=== PATIENT | female | born 1980 | race African-American/Black ===

== ENCOUNTER 2018-07-05 18:44 | Outpatient (CLI) | payer MEDICAID ==
[~2018-07-05] VITALS: Ht 149.9 cm; Wt 78.0 kg
[~2018-07-05 18:44] MED LIST: AC500T PO; ACET-2267 PO; ACHD5005 PO; AMOX500T2 PO; CEPH500C PO; CLON1TAB3 PO; CPR500T PO; DOXY100C2 PO; Depo Provera IM; ESCI20TA2 PO; FERR325T18 PO; HYDR-2997 PO; HYDR-34 PO; HYDR1TAB PO; HYDR1TAB86 PO; IBP600T1; LRT10T PO; META800T5 PO; METR500T PO; NAPR-243 PO; NAPR250T6 PO; NITR100C PO; ONDAN4ODT PO; OXYC10TA63 PO; OXYC15TA73 PO; PRD20T PO; PROP1TAB77 PO; QTP100T PO; SULF1TAB34; SULF1TAB38 PO; TRAM50TA2 PO; TRM50T; [UNRECOGNIZED DRUG - CODE]
--- NOTE | 2018-07-05 18:54 | NUR ---
VISHNU LEBRON presented to unit via W/C from ED, accompanied by S/O, with c/o FALL,STOMACH PAIN. VISHNU LEBRON weighed, gowned, voided, and to bed. EFHM and TOCO applied, VS taken. VISHNU LEBRON oriented to bed controls, call light, TV, heat, and A/C controls.
[2018-07-05 20:00] VITALS: BP 117/70
[2018-07-05] MEDS ORDERED: PREN-53 PO (22:38)
[2018-07-05 23:11] VITALS: BP 114/66
--- NOTE | 2018-07-05 23:20 | NUR ---
Pt ambulatory off unit at this time, accompanied by s/o. No ss distress noted
--- NOTE | 2018-07-10 00:49 | Physician Query-Final Dx ---
DEBBY NOWAK 07/10/18 0048: Clinic Account Progress/Dx Physician Query: Please give diagnosis Date of Service Jul 05, 2018 at 18:44 MELINDA GUAJARDO MD 07/10/18 0728: Clinic Account Progress/Dx DIAGNOSIS: Diagnosis False labor DEBBY NOWAK Jul 10, 2018 00:48 MELINDA GUAJARDO MD Jul 10, 2018 07:28
== END 2018-07-05 23:20 | disposition home or self-care (01) ==
LOC: WSo 18:44 → LDRP 18:46 → WSo 23:20
PROVIDERS: ATTEND Obstetrics & Gynecology
DX: O47.9 False labor, unspecified (principal)
CPT/HCPCS: 99213

== ENCOUNTER → 2018-08-13 | Outpatient (CLI) | payer MEDICAID ==
[~2018-08-13] MED LIST changes: +PREN-53 PO
== END ==
LOC: LABNPT 11:00
PROVIDERS: ATTEND Obstetrics & Gynecology
DX: O28.8 Other abnormal findings on antenatal screening of mother (principal)
CPT/HCPCS: 82570; 84156

== ENCOUNTER → 2018-08-16 | Outpatient (CLI) | payer MEDICAID ==
[2018-08-16 11:36] LABS: URINE CREATININE FOR RATIO 54 MG/DL (30-125); URINE PROTEIN FOR RATIO ONLY < 6 MG/DL (6-12)
== END ==
LOC: LABNPT 10:00
PROVIDERS: ATTEND Obstetrics & Gynecology
DX: O14.03 Mild to moderate pre-eclampsia, third trimester (principal)
CPT/HCPCS: 82570; 84156

== ENCOUNTER → 2018-08-27 | Outpatient (CLI) | payer MEDICAID | LOC: LABNPT 10:00 | PROVIDERS: ATTEND Obstetrics & Gynecology | DX: O14.03 Mild to moderate pre-eclampsia, third trimester (principal) | CPT/HCPCS: 82570; 84156 ==

== ENCOUNTER 2018-08-30 14:53 | Inpatient (IN) | payer MEDICAID ==
[2018-08-30] VITALS (16 sets, daily range): BP systolic 117–172; BP diastolic 82–134
[~2018-08-30] VITALS: Ht 149.9 cm; Wt 79.9 kg
[~2018-08-30 14:53] MED LIST changes: -DOCU100C37 PO; -LABE200T7 PO; -OXYC1TAB12 PO
--- NOTE | 2018-08-30 15:00 | NUR ---
VISHNU LEBRON presented to unit via ambulation, accompanied by fmaily members, with Pre-E and direct admit by Dr. Pt. weighed, gowned, voided, and to bed. EFHM and TOCO applied, VS taken. Pt. oriented to bed controls, call light, TV, heat, and A/C controls.
[2018-08-30] MEDS ORDERED: FAMOTIDINE 20MG/2ML IV (PEPCID) IV ONE (15:15)
[2018-08-30] MEDS ORDERED: METOCLOPRAMIDE INJ 10 MG/2 ML (REGLAN) IV ONE (15:15)
[2018-08-30] MEDS ORDERED: CITRIC ACID/SOB CIT (BICITRA) 30 ML UDC PO ONE (15:15)
[2018-08-30] MEDS: LACTATED RINGERS 1,000 ML IV PRN ×2 (15:27→16:10)
--- NOTE | 2018-08-30 15:27 | NUR ---
#20G IV x1 attempt to Rt.AC by TOMASA Mead. site patent. admission labs collected from site prior to IVF's infusing. LR bolus infusing with OR tubing per gravity. IV attempt x1 by this RN, unsuccessful.
--- NOTE | 2018-08-30 15:34 | NUR ---
consent for repeat c/s signed, placed on chart.
[2018-08-30 15:37] LABS: BASOPHILS # (AUTO) 0.1 10^3/uL (0.0-0.1); BASOPHILS % (AUTO) 1 % (0-10); EOSINOPHILS # (AUTO) 0.1 10^3/uL (0.0-0.3); EOSINOPHILS % (AUTO) 1 % (0-10); HEMATOCRIT 31 % (35-52); HEMOGLOBIN 9.9 G/DL (11.5-16.0); LYMPHOCYTES # (AUTO) 2.9 X 10^3 (1.0-4.0); LYMPHOCYTES % (AUTO) 31 % (12-44); MEAN CORPUSCULAR HEMOGLOBIN 27 PG (25-34); MEAN CORPUSCULAR HGB CONC 33 G/DL (32-36); MEAN CORPUSCULAR VOLUME 83 FL (80-99); MEAN PLATELET VOLUME 9.3 FL (7.4-10.4); MONOCYTES # (AUTO) 0.4 X 10^3 (0.0-1.0); MONOCYTES % (AUTO) 5 % (0-12); NEUTROPHILS # (AUTO) 5.9 X 10^3 (1.8-7.8); NEUTROPHILS % (AUTO) 64 % (42-75); PLATELET COUNT 227 10^3/uL (130-400); WHITE BLOOD COUNT 9.3 10^3/uL (4.3-11.0)
[2018-08-30] MEDS ORDERED: ONDANSETRON 4 MG/2 ML (SDV) Z0FRAN ONE (15:43)
[2018-08-30] MEDS ORDERED: BUPIVACAINE SPINAL 0.75% (SENSORCAINE) 2 ML AMP ONE (15:43)
[2018-08-30] MEDS ORDERED: OXYTOCIN/NORMAL SALINE 1,000 ML IV ONE (15:43)
[2018-08-30] MEDS ORDERED: fentaNYL INJECTION 100 MCG/2 ML AMP ONE (15:44)
--- NOTE | 2018-08-30 15:45 | NUR ---
pre-op medications given. see eMar for further.
--- NOTE | 2018-08-30 15:49 | NUR ---
consent signed for repeat c/s and placed on chart.
--- NOTE | 2018-08-30 15:58 | NUR ---
admitting assessment completed. pt reports c/o's BRIDGES x "several weeks" without visual changes. DTR's WNL. trace pitting pedal edema noted. denies epigastric pain. admission paperwork completed. pt states "'s sister (Beatriz Herrera, lives in ) will be guardian" of infant. pt will contact accredited legal secretary after delivery of infant.
--- NOTE | 2018-08-30 16:38 | NUR ---
here to see pt.
[2018-08-30] MEDS ORDERED: metroNIDAZOLE 500MG/100ML IVPB 100 ML ONE (16:41)
--- NOTE | 2018-08-30 16:42 | NUR ---
monitors dc'd. pt ambulated to OB c/s room with OR staff @ side. pt stable with no sx's of distress noted.
[2018-08-30] MEDS ORDERED: ceFAZolin 2 GM IV Premixed 50 ML IV ONE (16:45)
[2018-08-30] MEDS ORDERED: metroNIDAZOLE 500MG/100ML IVPB 100 ML IV ONE (16:45)
[2018-08-30] MEDS ORDERED: LIDOCAINE PF 2% 5 ML (XYLOCAINE) VIAL ONE (17:04)
[2018-08-30] MEDS ORDERED: MAGNESIUM SULFATE DRIP 500 ML IV ONE (17:40)
[2018-08-30] MEDS ORDERED: MEASLES,MUMPS,RUBELLA 1 EA INJ SC ONE (17:45)
[2018-08-30] MEDS ORDERED: TETANUS,DIPTH,PERTUSS P/F (BOOSTRIX) 0.5 ML VIAL IM ONE (17:45)
[2018-08-30] MEDS ORDERED: MEPERIDINE (DEMEROL) INJ 100 MG/ML IM PRN (17:45)
[2018-08-30] MEDS ORDERED: PROMETHAZINE INJ 25 MG/ML (PHENERGAN) AMP IM PRN (17:45)
[2018-08-30] MEDS ORDERED: D5 LR IV SOLUTION 1,000 ML IV ONE (17:52)
--- NOTE | 2018-08-30 17:53 | History & Physical ---
History and Physical Date Seen by Provider: Aug 30, 2018 Time Seen by Provider: 16:30 This patient is a 38-year-old 5 black female with an EDC of 4 [phone] putting her at 35 weeks gestation on this date seen in my clinic in follow- up from [facility] evaluation concerning for developing preeclampsia. Repeat lab work showed an elevated ALT an AST, an elevated LDH platelet count that was slightly decreasing and a urine protein creatinine ratio 0.47 and pressure was in the 140s over 100. She is sent to labor and delivery for management including repeat delivery secondary to severe preeclampsia with developing help syndrome patient denied ruptured membranes or bleeding. A GBS culture had been obtained on this date and that was results of course is not available. Patient's was complicated by gestational diabetes for which she was on metformin taken 500 mg 3 times a day with acceptable blood sugar control on that regimen. Allergies are to ibuprofen which causes a rash Medications are metformin 500 mg 3 times a day and vitamins Past medical history, past surgical history, obstetric history, family history, and social histories are per the antepartum record HEENT exam is normal Neck is supple with no lymphadenopathy and no thyromegaly Abdomen gravid soft nontender nondistended Extremities show clubbing or cyanosis. There is no Homans sign. There is some pretibial pitting edema and patient had DTRs are 3+ to 4 over 4 globally Pelvic exam shows a cervix closed 50 percent effaced -2 station with a vertex presentation Assessment and plan 35 week gestation with severe preeclampsia/help syndrome in a patient with 5 previous C-sections and a history of gestational diabetes. She was admitted and then fairly shortly taken to the operating room for repeat delivery. Plan would be for maintenance on IV magnesium post operatively until its apparent that preeclampsia is resolving 36 weeks gestation with severe preeclampsia 5 previous Allergies and Home Medications Allergies Coded Allergies: ibuprofen (Unverified Allergy, Mild, 02/19/09) Home Medications Ferrous Sulfate 325 Mg Tablet, 325 MG PO TIDWM Prescribed by: SARAH WADE on 11/17/15 1525 Inz325/Iron Fumarate/FA/Dss 1 Each Tablet, 1 EACH PO DAILY, (Reported) Patient Home Medication List Home Medication List Reviewed: Yes MELINDA GUAJARDO MD Aug 30, 2018 17:53
[2018-08-30] MEDS ORDERED: PROMETHAZINE INJ 25 MG/ML (PHENERGAN) AMP IVP ONE (18:00)
[2018-08-30] MEDS ORDERED: HYDROmorphone 2 MG/ML VIAL (DILAUDID) IV ONE (18:00)
[2018-08-30] MEDS ORDERED: diphenhydrAMINE 50 MG/ML INJ (BENADRYL) IV PRN (18:00)
[2018-08-30] MEDS ORDERED: NALOXONE 0.4 MG/ML 1 ML (NARCAN) VIAL IV PRN ×2 (18:00)
[2018-08-30] MEDS ORDERED: MEPERIDINE (DEMEROL) INJ 50 MG/ML IVP ONE (18:00)
[2018-08-30] MEDS ORDERED: ONDANSETRON 4 MG/2 ML (SDV) Z0FRAN IV PRN (18:00)
[2018-08-30] MEDS ORDERED: morphine INJ 10 MG/ML 1ML (SYR OR VIAL) IVP ONE (18:00)
[2018-08-30] MEDS ORDERED: ONDANSETRON 4 MG/2 ML (SDV) Z0FRAN IVP PRN (18:00)
[2018-08-30] MEDS ORDERED: METOCLOPRAMIDE INJ 10 MG/2 ML (REGLAN) IV PRN (18:00)
[2018-08-30] MEDS: MAGNESIUM SULFATE DRIP 500 ML IV SCH (18:17)
[2018-08-30] MEDS: OXYTOCIN/NORMAL SALINE 500 ML IV SCH (18:24)
--- NOTE | 2018-08-30 18:24 | NUR ---
pitocin rate decreased to 100cc/hr. magnesium infusion @ 2gm/hr (50cc/hr).
[2018-08-30] MEDS ORDERED: LABETALOL HCL 20 MG/4 ML VIAL IV ONE ×2 (18:45→20:20)
--- NOTE | 2018-08-30 19:01 | NUR ---
pt transferred to room 313 via bed with this RN and CANDELARIO Singer @ side. familiarized with room surroundings. call light within reach.
--- NOTE | 2018-08-30 19:20 | NUR ---
report given to CANDELARIO Wharton.
[2018-08-30] MEDS: DOCUSATE SODIUM 100 MG (COLACE) CAP PO SCH (20:59)
[2018-08-30] MEDS: oxyCODONE/APAP 10/325MG (PERCOCET 10) TABLET PO PRN (21:00)
--- NOTE | 2018-08-30 22:48 | NUR ---
Dr Arango called for report. Orders received and po medications given as ordered.
[2018-08-30] MEDS: LABETALOL 200 MG (NORMODYNE) TAB PO SCH (23:00)
[2018-08-30] MEDS ORDERED: LABETALOL 200 MG (NORMODYNE) TAB PO ONE (23:02)
[2018-08-31] VITALS (12 sets, daily range): BP systolic 121–160; BP diastolic 76–107
[2018-08-31] MEDS: oxyCODONE/APAP 10/325MG (PERCOCET 10) TABLET PO PRN ×5 (03:19→23:05)
--- NOTE | 2018-08-31 03:26 | OPERATIVE REPORT ---
DATE OF SERVICE: 08/30/2018 PREOPERATIVE DIAGNOSIS: A 35 weeks gestation with severe preeclampsia and 5 previous sections. POSTOPERATIVE DIAGNOSIS: A 35 weeks gestation with severe preeclampsia and 5 previous sections. OPERATIVE PROCEDURE: Repeat low transverse delivery of a viable male with Apgars of 3, 6, and 8 at 1, 5 and 10 minutes respectively. Weight is 5 lbs. 5 oz. Cord blood gas of 7.26 and a time of 17:07. OPERATIVE DESCRIPTION: With the patient in the supine position under satisfactory spinal analgesia, she was prepped and draped in the usual fashion for abdominal surgery. Bingham catheter was placed in the urinary bladder. Repeat Pfannenstiel incision made through skin with a scalpel by removing the patient's previous Pfannenstiel incisional scar. The abdomen was entered in the usual manner. Bladder retractor placed in position, clean scalpel used to make a 4 cm hysterotomy incision transversely across the lower uterine segment that was exceedingly thin and fibrotic secondary to her previous deliveries. Copious clear fluid was released on hysterotomy. A vigorous viable male was delivered via the uterine incision. Infant had stats as noted above. The infant was bulb suctioned on delivery of the head and again on completion of delivery. The umbilical cord was doubly clamped and cut and baby was passed to Dr. Griffith, the regional clinical research associate in attendance for delivery. Cord bloods were obtained. The placenta delivered manually and was normal with a 3-vessel cord. The uterus was exteriorized and interior wiped clean with a wet laparotomy sponge. Uterine incision closed with a running locked suture of 2-0 Vicryl. Hemostasis was satisfactory. The uterus was returned to the abdominal cavity. All blood clot and debris was removed from the abdominal cavity. Prior to replacing the uterus to the abdomen, the bladder dome was imbricated on itself secondary to some bleeding and some superficial vessels at that point. Hemostasis was complete. The uterus was emptied of all blood clot and debris and the anterior retroperitoneum was closed with a running suture of 2-0 Vicryl. Rectus muscles were closed with that suture as well. The rectus fascia was closed with 2-0 Vicryl, subcutaneous tissue with 2-0 Vicryl and the skin was stapled. Sponge, needle counts were correct on completion of the procedure. Estimated blood loss for procedure was around 200 mL. The patient tolerated the procedure well and was transferred to recovery room in stable condition and started on magnesium in the recovery room for her severe preeclampsia. The baby was taken to the full term nursery under the care of Dr. Griffith. Job ID: [id number] DocumentID: [id number] Dictated Date: 08/30/2018 18:08:17 Dairy Processing Supervisor Date: 08/31/2018 03:25:48 Dictated By: MELINDA GUAJARDO MD MTDD
[2018-08-31] MEDS: MAGNESIUM SULFATE DRIP 500 ML IV SCH (04:07)
[2018-08-31 06:38] LABS: BASOPHILS % (AUTO) 0 % (0-10); EOSINOPHILS # (AUTO) 0.1 10^3/uL (0.0-0.3); EOSINOPHILS % (AUTO) 1 % (0-10); HEMATOCRIT 33 % (35-52); HEMOGLOBIN 10.3 G/DL (11.5-16.0); LYMPHOCYTES # (AUTO) 2.5 X 10^3 (1.0-4.0); LYMPHOCYTES % (AUTO) 28 % (12-44); MEAN CORPUSCULAR HEMOGLOBIN 26 PG (25-34); MEAN CORPUSCULAR HGB CONC 31 G/DL (32-36); MEAN CORPUSCULAR VOLUME 84 FL (80-99); MEAN PLATELET VOLUME 9.2 FL (7.4-10.4); MONOCYTES # (AUTO) 0.5 X 10^3 (0.0-1.0); MONOCYTES % (AUTO) 5 % (0-12); NEUTROPHILS # (AUTO) 5.9 X 10^3 (1.8-7.8); NEUTROPHILS % (AUTO) 66 % (42-75); PLATELET COUNT 206 10^3/uL (130-400); RED CELL DISTRIBUTION WIDTH 14.9 % (10.0-14.5)
[2018-08-31] MEDS: OXYTOCIN/NORMAL SALINE 500 ML IV SCH (06:39)
--- NOTE | 2018-08-31 07:10 | NUR ---
Dr Arango to see patient and new orders received
[2018-08-31 07:13] LABS: ALANINE AMINOTRANSFERASE 134 U/L (0-55); ALBUMIN 2.8 GM/DL (3.2-4.5); ALKALINE PHOSPHATASE 126 U/L (40-136); BILIRUBIN,TOTAL 0.2 MG/DL (0.1-1.0); BUN/CREATININE RATIO 3; CALCIUM 7.8 MG/DL (8.5-10.1); CARBON DIOXIDE 18 MMOL/L (21-32); CHLORIDE 108 MMOL/L (98-107); CREATININE SERUM 0.86 MG/DL (0.60-1.30); GFR ESTIMATED > 60; GLUCOSE 111 MG/DL (70-105); POTASSIUM 3.1 MMOL/L (3.6-5.0); SODIUM 137 MMOL/L (135-145); TOTAL PROTEIN 5.7 GM/DL (6.4-8.2)
--- NOTE | 2018-08-31 07:28 | Progress Note-Standard ---
Standard Progress Note Progress Notes/Assess & Plan Date Seen by a Provider: Aug 31, 2018 Time Seen by a Provider: 07:25 Progress/Assessment & Plan This patient is without complaint. She has good pain control. Patient denies nausea vomiting. She is tolerating oral intake well. Vital Signs Date Time Temp Pulse Resp B/P (MAP) Pulse Ox O2 Delivery O2 Flow Rate FiO2 08/31/18 06:00 65 18 08/31/18 05:00 66 18 08/31/18 04:00 97.3 63 18 121/76 (91) 100 Room Air 08/31/18 04:00 64 18 08/31/18 03:00 64 18 08/31/18 02:04 100 Room Air 08/31/18 02:03 62 18 08/31/18 01:00 56 18 08/31/18 00:00 97.1 64 18 133/87 (102) 100 Room Air 08/31/18 00:00 64 18 08/30/18 23:00 69 18 08/30/18 22:00 65 18 08/30/18 20:10 63 18 08/30/18 20:10 96.5 18 169/107 (127) 100 Room Air 08/30/18 19:20 65 18 08/30/18 18:50 117/86 (96) 08/30/18 18:43 97.0 16 172/102 (125) 98 Room Air 08/30/18 18:33 96.4 62 16 155/100 (118) 100 Room Air 08/30/18 18:18 96.9 70 16 151/134 (140) 98 Room Air 08/30/18 18:18 70 16 08/30/18 18:01 97.1 85 16 142/96 (111) 98 Room Air 08/30/18 17:48 97.2 77 16 119/89 (99) 100 Room Air 08/30/18 16:35 90 18 159/103 (121) Room Air 08/30/18 16:20 86 18 153/100 (117) Room Air 08/30/18 16:05 91 18 132/82 (99) Room Air 08/30/18 15:50 93 18 146/92 (110) Room Air 08/30/18 15:11 98.1 98 18 151/96 (114) Room Air I & O 08/31/18 07:00 Intake Total 6050 ml Output Total 7700 ml Balance -1650 ml Blood pressures have been somewhat labile but have responded to IV and by mouth labetalol and are acceptable at this point Laboratory Tests Test 08/30/18 15:27 08/30/18 16:06 08/31/18 06:10 Range/Units White Blood Count 9.3 9.0 4.3-11.0 10^3/uL Red Blood Count 3.66 L 3.92 L 4.35-5.85 10^6/uL Hemoglobin 9.9 L 10.3 L 11.5-16.0 G/DL Hematocrit 31 L 33 L 35-52 % Mean Corpuscular Volume 83 84 80-99 FL Mean Corpuscular Hemoglobin 27 26 25-34 PG Mean Corpuscular Hemoglobin Concent 33 31 L 32-36 G/DL Red Cell Distribution Width 15.0 H 14.9 H 10.0-14.5 % Platelet Count 227 206 130-400 10^3/uL Mean Platelet Volume 9.3 9.2 7.4-10.4 FL Neutrophils (%) (Auto) 64 66 42-75 % Lymphocytes (%) (Auto) 31 28 12-44 % Monocytes (%) (Auto) 5 5 0-12 % Eosinophils (%) (Auto) 1 1 0-10 % Basophils (%) (Auto) 1 0 0-10 % Neutrophils # (Auto) 5.9 5.9 1.8-7.8 X 10^3 Lymphocytes # (Auto) 2.9 2.5 1.0-4.0 X 10^3 Monocytes # (Auto) 0.4 0.5 0.0-1.0 X 10^3 Eosinophils # (Auto) 0.1 0.1 0.0-0.3 10^3/uL Basophils # (Auto) 0.1 0.0 0.0-0.1 10^3/uL Glucometer 241 H 70-110 MG/DL Sodium Level 137 135-145 MMOL/L Potassium Level 3.1 L 3.6-5.0 MMOL/L Chloride Level 108 H 98-107 MMOL/L Carbon Dioxide Level 18 L 21-32 MMOL/L Anion Gap 11 5-14 MMOL/L Blood Urea Nitrogen 3 L 7-18 MG/DL Creatinine 0.86 0.60-1.30 MG/DL Estimat Glomerular Filtration Rate > 60 BUN/Creatinine Ratio 3 Glucose Level 111 H 70-105 MG/DL Calcium Level 7.8 L 8.5-10.1 MG/DL Corrected Calcium 8.8 8.5-10.1 MG/DL Total Bilirubin 0.2 0.1-1.0 MG/DL Aspartate Amino Transf (AST/SGOT) 91 H 5-34 U/L Alanine Aminotransferase (ALT/SGPT) 134 H 0-55 U/L Alkaline Phosphatase 126 40-136 U/L Lactate Dehydrogenase 356 H 125-220 U/L Total Protein 5.7 L 6.4-8.2 GM/DL Albumin 2.8 L 3.2-4.5 GM/DL Liver enzymes remain slightly elevated. The LDH this is elevated as well. These are in the same range as the preadmission labs yesterday. Physical exam shows a benign abdomen. Extremities show no clubbing or cyanosis. There is no Homans sign. Assessment and plan postoperative day number 1 status post repeat delivery at 36 weeks' gestation due to severe preeclampsia in a patient who is diabetic and has had prior C-sections 5. It appears preeclampsia is resolving this point we will call her magnesium and her IV fluids and remove the Bingham catheter and allowing ambulation. Continue the labetalol 100 mg twice a day in the short-term and a close attention to her blood pressures and other vitals MELINDA GUAJARDO MD Aug 31, 2018 07:28
--- NOTE | 2018-08-31 07:45 | NUR ---
rn to pt bedside. pt resting eyes closed. plan of care reviewed with pt and verbalized understanding. iv fluids to saline lock and lau catheter dc'd. peircare, pad changed and underwear on. noted small amt of rubra.
--- NOTE | 2018-08-31 07:51 | Anesthesia-Regional Post-Op ---
Regional Patient Condition Mental Status: Alert, Oriented x3 Circulation: Same as Pre-Op Headache: Absent Sensation: Full Recovery Motor Block: Absent Post Op Complications Complications None Follow Up Care/Instructions Patient Instructions None needed. Anesthesia/Patient Condition Patient is doing well, no complaints, stable vital signs, no apparent adverse anesthesia problems. No complications reported per nursing. ANA VIDAL CRNA Aug 31, 2018 07:51
--- NOTE | 2018-08-31 08:30 | NUR ---
pt requests to go to bathroom. assisted out of bed and ambulates slowly to bathroom. void, pericare (assisted by rn). Ambulates from bathroom to room door and then back to bed. scd's resumed. fresh ice water to bedside table. pt c/o continued right upper abd pain. warm blanket placed to area.
[2018-08-31] MEDS: LABETALOL 200 MG (NORMODYNE) TAB PO SCH ×2 (09:11→21:03)
[2018-08-31] MEDS: DOCUSATE SODIUM 100 MG (COLACE) CAP PO SCH ×2 (09:12→21:03)
--- NOTE | 2018-08-31 09:20 | NUR ---
pt reports right upper abd pain is better after heat and rates pain 8:10. denies further needs at this time.
--- NOTE | 2018-08-31 09:34 | NUR ---
Assisted up to void, pericare.
--- NOTE | 2018-08-31 09:38 | NUR ---
ambulates 50 feet and then back to room. another warm blanket placed on right upper abd for comfort
--- NOTE | 2018-08-31 11:00 | NUR ---
Assisted up to void by Lucille Daley rn. void, pericare and back to bed. pt c/o nausea.
--- NOTE | 2018-08-31 11:12 | NUR ---
Rn to bedside. pt resting in bed eyes closed. vital signs obtained. plan of care reviewed with pt. pt dozing off when visiting with rn. pt reports she did not get much sleep last night.
--- NOTE | 2018-08-31 11:18 | NUR ---
Dr fernandez called and notified of pt c/o and new order received.
[2018-08-31] MEDS ORDERED: ONDANSETRON 4 MG/2 ML (SDV) Z0FRAN IVP ONE (11:30)
--- NOTE | 2018-08-31 13:35 | NUR ---
DR. GUAJARDO TO PT'S BEDSIDE.
[2018-08-31] MEDS: METOCLOPRAMIDE 10 MG (REGLAN) TAB PO SCH (14:12)
--- NOTE | 2018-08-31 17:10 | NUR ---
PT IN BED, LYING DOWN. PAIN MEDS GIVEN PO PER PT REQUEST; SEE EMAR FOR FURTHER. PT DENIES ANY FURTHER NEEDS AT THIS TIME. CALL LIGHT WITHIN REACH.
--- NOTE | 2018-08-31 21:20 | NUR ---
PT RESTING IN BED. ASSESSMENT COMPLETED. PT DENIES ANY NEEDS AT THIS TIME. WILL CONTINUE TO MONITOR.
--- NOTE | 2018-09-01 00:30 | NUR ---
PT REQUESTING COLD TRY. SANDWICH TRAY PROVIDED.
[2018-09-01 02:30] VITALS: BP 133/81
[2018-09-01] MEDS: oxyCODONE/APAP 10/325MG (PERCOCET 10) TABLET PO PRN ×4 (04:59→23:43)
[2018-09-01 05:51] VITALS: BP 130/80
[2018-09-01 08:20] VITALS: BP 136/82
--- NOTE | 2018-09-01 08:20 | NUR ---
A.M. ASSESSMENT COMPLETED. VSS.
--- NOTE | 2018-09-01 08:45 | NUR ---
DR. GUAJARDO HERE TO SEE PT. PT UNSURE IF WANTS TO GO TODAY OR NOT.
--- NOTE | 2018-09-01 08:56 | Progress Note-Standard ---
Standard Progress Note Progress Notes/Assess & Plan Date Seen by a Provider: Sep 01, 2018 Time Seen by a Provider: 08:54 Progress/Assessment & Plan This patient is without complaint. She has good pain control. Patient denies nausea vomiting. She is tolerating oral intake well. Vital Signs Date Time Temp Pulse Resp B/P (MAP) Pulse Ox O2 Delivery O2 Flow Rate FiO2 08/31/18 06:00 65 18 08/31/18 05:00 66 18 08/31/18 04:00 97.3 63 18 121/76 (91) 100 Room Air 08/31/18 04:00 64 18 08/31/18 03:00 64 18 08/31/18 02:04 100 Room Air 08/31/18 02:03 62 18 08/31/18 01:00 56 18 08/31/18 00:00 97.1 64 18 133/87 (102) 100 Room Air 08/31/18 00:00 64 18 08/30/18 23:00 69 18 08/30/18 22:00 65 18 08/30/18 20:10 63 18 08/30/18 20:10 96.5 18 169/107 (127) 100 Room Air 08/30/18 19:20 65 18 08/30/18 18:50 117/86 (96) 08/30/18 18:43 97.0 16 172/102 (125) 98 Room Air 08/30/18 18:33 96.4 62 16 155/100 (118) 100 Room Air 08/30/18 18:18 96.9 70 16 151/134 (140) 98 Room Air 08/30/18 18:18 70 16 08/30/18 18:01 97.1 85 16 142/96 (111) 98 Room Air 08/30/18 17:48 97.2 77 16 119/89 (99) 100 Room Air 08/30/18 16:35 90 18 159/103 (121) Room Air 08/30/18 16:20 86 18 153/100 (117) Room Air 08/30/18 16:05 91 18 132/82 (99) Room Air 08/30/18 15:50 93 18 146/92 (110) Room Air 08/30/18 15:11 98.1 98 18 151/96 (114) Room Air I & O 08/31/18 07:00 Intake Total 6050 ml Output Total 7700 ml Balance -1650 ml Blood pressures have been somewhat labile but have responded to IV and by mouth labetalol and are acceptable at this point Laboratory Tests Test 08/30/18 15:27 08/30/18 16:06 08/31/18 06:10 Range/Units White Blood Count 9.3 9.0 4.3-11.0 10^3/uL Red Blood Count 3.66 L 3.92 L 4.35-5.85 10^6/uL Hemoglobin 9.9 L 10.3 L 11.5-16.0 G/DL Hematocrit 31 L 33 L 35-52 % Mean Corpuscular Volume 83 84 80-99 FL Mean Corpuscular Hemoglobin 27 26 25-34 PG Mean Corpuscular Hemoglobin Concent 33 31 L 32-36 G/DL Red Cell Distribution Width 15.0 H 14.9 H 10.0-14.5 % Platelet Count 227 206 130-400 10^3/uL Mean Platelet Volume 9.3 9.2 7.4-10.4 FL Neutrophils (%) (Auto) 64 66 42-75 % Lymphocytes (%) (Auto) 31 28 12-44 % Monocytes (%) (Auto) 5 5 0-12 % Eosinophils (%) (Auto) 1 1 0-10 % Basophils (%) (Auto) 1 0 0-10 % Neutrophils # (Auto) 5.9 5.9 1.8-7.8 X 10^3 Lymphocytes # (Auto) 2.9 2.5 1.0-4.0 X 10^3 Monocytes # (Auto) 0.4 0.5 0.0-1.0 X 10^3 Eosinophils # (Auto) 0.1 0.1 0.0-0.3 10^3/uL Basophils # (Auto) 0.1 0.0 0.0-0.1 10^3/uL Glucometer 241 H 70-110 MG/DL Sodium Level 137 135-145 MMOL/L Potassium Level 3.1 L 3.6-5.0 MMOL/L Chloride Level 108 H 98-107 MMOL/L Carbon Dioxide Level 18 L 21-32 MMOL/L Anion Gap 11 5-14 MMOL/L Blood Urea Nitrogen 3 L 7-18 MG/DL Creatinine 0.86 0.60-1.30 MG/DL Estimat Glomerular Filtration Rate > 60 BUN/Creatinine Ratio 3 Glucose Level 111 H 70-105 MG/DL Calcium Level 7.8 L 8.5-10.1 MG/DL Corrected Calcium 8.8 8.5-10.1 MG/DL Total Bilirubin 0.2 0.1-1.0 MG/DL Aspartate Amino Transf (AST/SGOT) 91 H 5-34 U/L Alanine Aminotransferase (ALT/SGPT) 134 H 0-55 U/L Alkaline Phosphatase 126 40-136 U/L Lactate Dehydrogenase 356 H 125-220 U/L Total Protein 5.7 L 6.4-8.2 GM/DL Albumin 2.8 L 3.2-4.5 GM/DL Liver enzymes remain slightly elevated. The LDH this is elevated as well. These are in the same range as the preadmission labs yesterday. Physical exam shows a benign abdomen. Extremities show no clubbing or cyanosis. There is no Homans sign. Assessment and plan postoperative day number 1 status post repeat delivery at 36 weeks' gestation due to severe preeclampsia in a patient who is diabetic and has had prior C-sections 5. It appears preeclampsia is resolving this point we will call her magnesium and her IV fluids and remove the Bingham catheter and allowing ambulation. Continue the labetalol 100 mg twice a day in the short-term and a close attention to her blood pressures and other vitals September 01, 2018 Patient is without complaint. She is ablating, voiding, tolerating oral intake well has good control of her pain, patient denies chest pain, denies shortness of breath, denies headache, denies nausea vomiting. Vital Signs Date Time Temp Pulse Resp B/P (MAP) Pulse Ox O2 Delivery O2 Flow Rate FiO2 09/01/18 05:51 98.6 80 18 130/80 (97) 100 Room Air 09/01/18 02:30 98.3 80 18 133/81 (98) 100 Room Air 08/31/18 21:30 98.6 77 19 160/95 (116) 100 Room Air 08/31/18 15:37 96.8 65 19 158/107 (124) 100 Room Air 08/31/18 11:14 96.9 58 19 129/88 (102) 100 Room Air 08/31/18 09:12 97.0 I & O 09/01/18 07:00 Intake Total 5815 ml Output Total 7000 ml Balance -1185 ml Blood pressures are generally stable and are decreasing to a more normal range with the labetalol The abdomen is benign. Surgical incision is clean dry and intact. Extremities show no clubbing or cyanosis. There is no Homans sign. Assessment and plan postoperative day number 2 status post repeat delivery due to severe preeclampsia. Patient doing well and we will entertain discharge home today or tomorrow as she prefers Final Diagnosis Repeat delivery at 36 weeks gestation MELINDA GUAJARDO MD Sep 01, 2018 08:56
[2018-09-01] MEDS ORDERED: DOCU100C37 PO ×2 (08:58)
[2018-09-01] MEDS ORDERED: OXYC1TAB12 PO ×2 (08:58)
[2018-09-01] MEDS ORDERED: LABE200T7 PO ×2 (08:58)
--- NOTE | 2018-09-01 09:00 | Discharge Instructions ---
Discharge Instructions Discharge Medications New, Converted or Re-Newed RX: RX on Chart Patient Instructions Patient Instructions: As directed Return to The Hospital For: As directed Activity & Diet Discharge Diet: No Restrictions Activity as Tolerated: No Orders-Post D/C & Referrals Follow Up Appt: RTC on Friday, September 07, 2018 at 930 a.m. for incision check. Call to make follow up appt. for patient in 4 weeks. Wound Care: Remove bella, apply benzoin and steri strips. Activity Per routine post instructions. Please call in RX to patient pharmacy. Diet as tolerated Patient may shower or tub bathe as desired. Continue home meds MELINDA GUAJARDO MD Sep 01, 2018 09:00
[2018-09-01] MEDS ORDERED: FLU QUADRIvalent (5+ YOA) 2018-2019 (AFLURIA) 0.5 ML IM ONE ×2 (09:17→10:15)
[2018-09-01] MEDS ORDERED: TETANUS,DIPTH,PERTUSS P/F (BOOSTRIX) 0.5 ML VIAL IM ONE (09:17)
[2018-09-01] MEDS: LABETALOL 200 MG (NORMODYNE) TAB PO SCH ×2 (09:21→21:29)
[2018-09-01] MEDS: METOCLOPRAMIDE 10 MG (REGLAN) TAB PO SCH ×3 (09:21→21:28)
[2018-09-01] MEDS: DOCUSATE SODIUM 100 MG (COLACE) CAP PO SCH ×2 (09:21→21:28)
--- NOTE | 2018-09-01 09:25 | NUR ---
TDAP GIVEN IM IN LEFT DELTOID. SITE CLEAR.
--- NOTE | 2018-09-01 10:06 | NUR ---
FLU VACCINE GIVEN IM IN RIGHT DELTOID. PT DENIES HAVING FLU SHOT. NO DOCUMENTATION OF FLU VACCINE.
--- NOTE | 2018-09-01 12:00 | NUR ---
PT STILL UNDECIDED ABOUT BEING DISCHARGED TODAY.
[2018-09-01 13:45] VITALS: BP 127/79
--- NOTE | 2018-09-01 13:45 | NUR ---
VSS. PT UNSURE IF SHE WANTS TO LEAVE TODAY. HAD AMBULATED DOWNSTAIRS A COUPLE OF TIMES TODAY.
--- NOTE | 2018-09-01 15:45 | NUR ---
SLEEPING SOUNDLY, NO APPARENT DISTRESS.
--- NOTE | 2018-09-01 17:37 | NUR ---
PERCOCET 2 TABS P.O. FOR C/O ABD PAIN. PT HAS BEEN RESTING THIS AFTERNOON. FAMILY BROUGHT SOME FOOD AND SHE IS CURRENTLY EATING.
--- NOTE | 2018-09-01 18:45 | NUR ---
DENIES ANY WANTS OR NEEDS AT THIS TIME. PLANS TO DISCHARGE TOMORROW.
[2018-09-01 20:00] VITALS: BP 147/94
--- NOTE | 2018-09-01 21:54 | NUR ---
PT RESTING IN BED. ASSESSMENT COMPLETED. PT REQUESTING ICE CREAM AT THIS TIME. COMMUNITY MARKETING COORDINATOR NOTIFIED.
[2018-09-02 02:00] VITALS: BP 135/84
--- OUTSIDE RECORDS SUMMARY | 2018-09-02 03:00 | XMS REPORT | Continuity of Care Document ---
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 epithelial cells detection in urine sediment by light microscopy 25-50 NRG Crystals detection in urine sediment by light microscopy NONE NRG Casts detection in urine sediment by light microscopy NONE NRG Mucus detection in urine sediment by light microscopy SMALL NRG Complete urinalysis with reflex to culture YES NRG Urine beta human chorionic gonadotropin (hCG) measurement - 02/24/18 17:02 Urine beta human chorionic gonadotropin (hCG) measurement POSITIVE NEGATIVE Bacterial urine culture - 02/24/18 17:02 Bacterial urine culture SEE REPORT NRG COLONY COUNT . NRG Chlamydia DNA amp probe, urine - 02/24/18 17:02 Chlamydia DNA amp probe, urine Not Detected Not Detected Urine Neisseria gonorrhoeae DNA assay - 02/24/18 17:02 Gonorrhea amp DNA-urine Not Detected Not Detected Urine protein/creatinine mass ratio - 08/13/18 11:00 Urine protein measurement (mass/volume) 12 mg/dL 6-12 Urine creatinine measurement (mass/volume) 74 mg/dL 30- 125 Urine protein/creatinine mass ratio 0.16 NRG Urine protein/creatinine mass ratio - 08/16/18 10:00 Urine protein measurement (mass/volume) < mg/dL 6-12 Urine creatinine measurement (mass/volume) 54 mg/dL 30- 125 Urine protein/creatinine mass ratio TNP NRG Urine protein/creatinine mass ratio - 08/27/18 10:00 Urine protein measurement (mass/volume) 38 mg/dL 6-12 Urine creatinine measurement (mass/volume) 69 mg/dL 30- 125 Urine protein/creatinine mass ratio 0.55 NRG Urine protein/creatinine mass ratio - 08/30/18 11:00 Urine protein measurement (mass/volume) 20 mg/dL 6-12 Urine creatinine measurement (mass/volume) 43 mg/dL 30- 125 Urine protein/creatinine mass ratio 0.47 NRG Complete blood count (CBC) with automated white blood cell (WBC) differential - 08/30/18 15:27 Blood leukocytes automated count (number/volume) 9.3 10*3/uL 4.3-11.0 Blood erythrocytes automated count (number/volume) 3.66 10*6/uL 4.35-5.85 Venous blood hemoglobin measurement (mass/volume) 9.9 g/dL 11.5-16.0 Blood hematocrit (volume fraction) 31 % 35-52 Automated erythrocyte mean corpuscular volume 83 [foz_us] 80-99 Automated erythrocyte mean corpuscular hemoglobin (mass per erythrocyte) 27 pg 25-34 Automated erythrocyte mean corpuscular hemoglobin concentration measurement ( mass/volume) 33 g/dL 32-36 Automated erythrocyte distribution width ratio 15.0 % 10.0-14.5 Automated blood platelet count (count/volume) 227 10*3/uL 130-400 Automated blood platelet mean volume measurement 9.3 [foz_us] 7.4-10.4 Automated blood neutrophils/100 leukocytes 64 % 42-75 Automated blood lymphocytes/100 leukocytes 31 % 12-44 Blood monocytes/100 leukocytes 5 % 0-12 Automated blood eosinophils/100 leukocytes 1 % 0-10 Automated blood basophils/100 leukocytes 1 % 0-10 Blood neutrophils automated count (number/volume) 5.9 10*3 1.8-7.8 Blood lymphocytes automated count (number/volume) 2.9 10*3 1.0-4.0 Blood monocytes automated count (number/volume) 0.4 10*3 0.0-1.0 Automated eosinophil count 0.1 10*3/uL 0.0-0.3 Automated blood basophil count (count/volume) 0.1 10*3/uL 0.0-0.1 Blood type T Indirect antibody screen panel - 08/30/18 15:27 ABO+Rh group OP NRG Transfusion band number [id number] NRG Blood group antibody screen NEGATIVE NRG Capillary blood glucose measurement by glucometer (mass/volume) - 08/30/18 16: 06 Capillary blood glucose measurement by glucometer (mass/volume) 241 mg/dL 70-110 Complete blood count (CBC) with automated white blood cell (WBC) differential - 08/31/18 06:10 Blood leukocytes automated count (number/volume) 9.0 10*3/uL 4.3-11.0 Blood erythrocytes automated count (number/volume) 3.92 10*6/uL 4.35-5.85 Venous blood hemoglobin measurement (mass/volume) 10.3 g/dL 11.5-16.0 Blood hematocrit (volume fraction) 33 % 35-52 Automated erythrocyte mean corpuscular volume 84 [foz_us] 80-99 Automated erythrocyte mean corpuscular hemoglobin (mass per erythrocyte) 26 pg 25-34 Automated erythrocyte mean corpuscular hemoglobin concentration measurement ( mass/volume) 31 g/dL 32-36 Automated erythrocyte distribution width ratio 14.9 % 10.0-14.5 Automated blood platelet count (count/volume) 206 10*3/uL 130-400 Automated blood platelet mean volume measurement 9.2 [foz_us] 7.4-10.4 Automated blood neutrophils/100 leukocytes 66 % 42-75 Automated blood lymphocytes/100 leukocytes 28 % 12-44 Blood monocytes/100 leukocytes 5 % 0-12 Automated blood eosinophils/100 leukocytes 1 % 0-10 Automated blood basophils/100 leukocytes 0 % 0-10 Blood neutrophils automated count (number/volume) 5.9 10*3 1.8-7.8 Blood lymphocytes automated count (number/volume) 2.5 10*3 1.0-4.0 Blood monocytes automated count (number/volume) 0.5 10*3 0.0-1.0 Automated eosinophil count 0.1 10*3/uL 0.0-0.3 Automated blood basophil count (count/volume) 0.0 10*3/uL 0.0-0.1 Comprehensive metabolic panel - 08/31/18 06:10 Serum or plasma sodium measurement (moles/volume) 137 mmol/L 135-145 Serum or plasma potassium measurement (moles/volume) 3.1 mmol/L 3.6-5.0 Serum or plasma chloride measurement (moles/volume) 108 mmol/L 98-107 Carbon dioxide 18 mmol/L 21-32 Serum or plasma anion gap determination (moles/volume) 11 mmol/L 5-14 Serum or plasma urea nitrogen measurement (mass/volume) 3 mg/dL 7-18 Serum or plasma creatinine measurement (mass/volume) 0.86 mg/dL 0.60-1.30 Serum or plasma urea nitrogen/creatinine mass ratio 3 NRG Serum or plasma creatinine measurement with calculation of estimated glomerular filtration rate > NRG Serum or plasma glucose measurement (mass/volume) 111 mg/dL 70-105 Serum or plasma calcium measurement (mass/volume) 7.8 mg/dL 8.5-10.1 Serum or plasma total bilirubin measurement (mass/volume) 0.2 mg/dL 0.1-1.0 Serum or plasma alkaline phosphatase measurement (enzymatic activity/volume) 126 U/L 40-136 Serum or plasma aspartate aminotransferase measurement (enzymatic activity/ volume) 91 U/L 5-34 Serum or plasma alanine aminotransferase measurement (enzymatic activity/volume ) 134 U/L 0-55 Serum or plasma protein measurement (mass/volume) 5.7 g/dL 6.4-8.2 Serum or plasma albumin measurement (mass/volume) 2.8 g/dL 3.2-4.5 CALCIUM CORRECTED 8.8 mg/dL 8.5-10.1 Lactate dehydrogenase 1 [enzymatic activity/volume] in serum or plasma - 06:10 Lactate dehydrogenase 1 [enzymatic activity/volume] in serum or plasma 356 U/L 125-220 Encounters ACCT No. Visit Date/Time Discharge Status Pt. Type Provider Facility Loc./Unit Complaint [id number] 02/18/2014 09:13:00 02/18/2014 23:59:59 CLS Outpatient SUMIT LANDRY APRN [id number] 02/11/2014 09:06:00 02/11/2014 23:59:59 CLS Outpatient SUMIT LANDRY APRN [id number] 08/27/2013 13:57:00 08/27/2013 23:59:59 CLS Outpatient ION MORATAYA APRN [id number] 10/04/2012 15:51:00 10/04/2012 23:59:59 CLS Outpatient [id number] 10/04/2012 15:51:00 10/04/2012 23:59:59 CLS Outpatient MIKAYLA JOINER APRN [id number] 05/17/2012 09:48:00 05/17/2012 23:59:59 CLS Outpatient [id number] 05/17/2012 09:48:00 05/17/2012 23:59:59 CLS Outpatient [id number] 08/27/2018 10:00:00 08/27/2018 23:59:59 CLS Outpatient MELINDA GUAJARDO MD [facility] [id number] 08/16/2018 10:00:00 08/16/2018 23:59:59 CLS Outpatient MELINDA GUAJARDO MD [facility] [id number] 08/13/2018 11:00:00 08/13/2018 23:59:59 CLS Outpatient MELINDA GUAJARDO MD [facility] [id number] 07/05/2018 18:44:00 07/05/2018 23:20:00 DIS Outpatient MELINDA GUAJARDO MD [facility] WSo FALL,STOMACH PAIN [id number] 02/24/2018 16:40:00 02/24/2018 18:23:00 DIS Emergency SHAINA VALENTINE MD [facility] ER JUST FOUND OUT SHES , CRAMPING, [id number] 11/14/2015 06:33:00 11/17/2015 17:10:00 DIS [facility] [id number] 11/07/2015 14:48:00 11/07/2015 18:05:00 DIS Outpatient JEFFERS DO, [facility]ADMINI K [facility] PRESS[facility]/CONTRACTIONS 34 WKS PREG [id number] 10/31/2015 10:23:00 10/31/2015 13:25:00 DIS Outpatient ELEANOR SALGUERO, ALBA Brown [facility] CRAMP[facility] [id number] 03/29/2013 02:15:00 03/30/2013 10:35:00 DIS Inpatient ALETHA SALGUERO, GREGORIO Rowland [facility] ICU HEAD TRAUMA,AMS [id number] 02/24/2013 15:04:00 02/24/2013 16:45:00 DIS Emergency JODY CLARK [facility] ER POSS ABSCESS [id number] 08/30/2018 14:53:00 ACT Inpatient MELINDA GUAJARDO MD [facility] WS CSECTION [id number] 08/30/2018 11:00:00 ACT Outpatient MELINDA GUAJARDO MD [facility] LABNPT [id number] 08/09/2012 11:05:00 Document Registration [id number] 07/05/2012 09:36:00 Document Registration [id number] 12/21/2011 07:02:00 Document Registration [id number] 02/24/2011 11:39:00 Document Registration [id number] 02/02/2011 12:52:00 Document Registration [id number] 08/20/2010 05:37:00 Document Registration [id number] 08/18/2010 09:16:00 Document Registration [id number] 08/06/2010 09:43:00 Document Registration [id number] 08/04/2010 11:31:00 Document Registration [id number] 08/04/2010 10:47:00 Document Registration [id number] 08/01/2010 13:15:00 Document Registration
[2018-09-02] MEDS: oxyCODONE/APAP 10/325MG (PERCOCET 10) TABLET PO PRN (06:14)
[2018-09-02] MEDS: METOCLOPRAMIDE 10 MG (REGLAN) TAB PO SCH (06:14)
[2018-09-02 07:46] VITALS: BP 136/71
[2018-09-02] MEDS: LABETALOL 200 MG (NORMODYNE) TAB PO SCH (08:31)
[2018-09-02] MEDS: DOCUSATE SODIUM 100 MG (COLACE) CAP PO SCH (08:32)
--- NOTE | 2018-09-02 09:24 | Progress Note-Standard ---
Standard Progress Note Progress Notes/Assess & Plan Date Seen by a Provider: Sep 02, 2018 Time Seen by a Provider: 09:22 Progress/Assessment & Plan This patient is without complaint. She has good pain control. Patient denies nausea vomiting. She is tolerating oral intake well. Vital Signs Date Time Temp Pulse Resp B/P (MAP) Pulse Ox O2 Delivery O2 Flow Rate FiO2 08/31/18 06:00 65 18 08/31/18 05:00 66 18 08/31/18 04:00 97.3 63 18 121/76 (91) 100 Room Air 08/31/18 04:00 64 18 08/31/18 03:00 64 18 08/31/18 02:04 100 Room Air 08/31/18 02:03 62 18 08/31/18 01:00 56 18 08/31/18 00:00 97.1 64 18 133/87 (102) 100 Room Air 08/31/18 00:00 64 18 08/30/18 23:00 69 18 08/30/18 22:00 65 18 08/30/18 20:10 63 18 08/30/18 20:10 96.5 18 169/107 (127) 100 Room Air 08/30/18 19:20 65 18 08/30/18 18:50 117/86 (96) 08/30/18 18:43 97.0 16 172/102 (125) 98 Room Air 08/30/18 18:33 96.4 62 16 155/100 (118) 100 Room Air 08/30/18 18:18 96.9 70 16 151/134 (140) 98 Room Air 08/30/18 18:18 70 16 08/30/18 18:01 97.1 85 16 142/96 (111) 98 Room Air 08/30/18 17:48 97.2 77 16 119/89 (99) 100 Room Air 08/30/18 16:35 90 18 159/103 (121) Room Air 08/30/18 16:20 86 18 153/100 (117) Room Air 08/30/18 16:05 91 18 132/82 (99) Room Air 08/30/18 15:50 93 18 146/92 (110) Room Air 08/30/18 15:11 98.1 98 18 151/96 (114) Room Air I & O 08/31/18 07:00 Intake Total 6050 ml Output Total 7700 ml Balance -1650 ml Blood pressures have been somewhat labile but have responded to IV and by mouth labetalol and are acceptable at this point Laboratory Tests Test 08/30/18 15:27 08/30/18 16:06 08/31/18 06:10 Range/Units White Blood Count 9.3 9.0 4.3-11.0 10^3/uL Red Blood Count 3.66 L 3.92 L 4.35-5.85 10^6/uL Hemoglobin 9.9 L 10.3 L 11.5-16.0 G/DL Hematocrit 31 L 33 L 35-52 % Mean Corpuscular Volume 83 84 80-99 FL Mean Corpuscular Hemoglobin 27 26 25-34 PG Mean Corpuscular Hemoglobin Concent 33 31 L 32-36 G/DL Red Cell Distribution Width 15.0 H 14.9 H 10.0-14.5 % Platelet Count 227 206 130-400 10^3/uL Mean Platelet Volume 9.3 9.2 7.4-10.4 FL Neutrophils (%) (Auto) 64 66 42-75 % Lymphocytes (%) (Auto) 31 28 12-44 % Monocytes (%) (Auto) 5 5 0-12 % Eosinophils (%) (Auto) 1 1 0-10 % Basophils (%) (Auto) 1 0 0-10 % Neutrophils # (Auto) 5.9 5.9 1.8-7.8 X 10^3 Lymphocytes # (Auto) 2.9 2.5 1.0-4.0 X 10^3 Monocytes # (Auto) 0.4 0.5 0.0-1.0 X 10^3 Eosinophils # (Auto) 0.1 0.1 0.0-0.3 10^3/uL Basophils # (Auto) 0.1 0.0 0.0-0.1 10^3/uL Glucometer 241 H 70-110 MG/DL Sodium Level 137 135-145 MMOL/L Potassium Level 3.1 L 3.6-5.0 MMOL/L Chloride Level 108 H 98-107 MMOL/L Carbon Dioxide Level 18 L 21-32 MMOL/L Anion Gap 11 5-14 MMOL/L Blood Urea Nitrogen 3 L 7-18 MG/DL Creatinine 0.86 0.60-1.30 MG/DL Estimat Glomerular Filtration Rate > 60 BUN/Creatinine Ratio 3 Glucose Level 111 H 70-105 MG/DL Calcium Level 7.8 L 8.5-10.1 MG/DL Corrected Calcium 8.8 8.5-10.1 MG/DL Total Bilirubin 0.2 0.1-1.0 MG/DL Aspartate Amino Transf (AST/SGOT) 91 H 5-34 U/L Alanine Aminotransferase (ALT/SGPT) 134 H 0-55 U/L Alkaline Phosphatase 126 40-136 U/L Lactate Dehydrogenase 356 H 125-220 U/L Total Protein 5.7 L 6.4-8.2 GM/DL Albumin 2.8 L 3.2-4.5 GM/DL Liver enzymes remain slightly elevated. The LDH this is elevated as well. These are in the same range as the preadmission labs yesterday. Physical exam shows a benign abdomen. Extremities show no clubbing or cyanosis. There is no Homans sign. Assessment and plan postoperative day number 1 status post repeat delivery at 36 weeks' gestation due to severe preeclampsia in a patient who is diabetic and has had prior C-sections 5. It appears preeclampsia is resolving this point we will call her magnesium and her IV fluids and remove the B[place] catheter and allowing ambulation. Continue the labetalol 100 mg twice a day in the short-term and a close attention to her blood pressures and other vitals September 01, 2018 Patient is without complaint. She is ablating, voiding, tolerating oral intake well has good control of her pain, patient denies chest pain, denies shortness of breath, denies headache, denies nausea vomiting. Vital Signs Date Time Temp Pulse Resp B/P (MAP) Pulse Ox O2 Delivery O2 Flow Rate FiO2 09/01/18 05:51 98.6 80 18 130/80 (97) 100 Room Air 09/01/18 02:30 98.3 80 18 133/81 (98) 100 Room Air 08/31/18 21:30 98.6 77 19 160/95 (116) 100 Room Air 08/31/18 15:37 96.8 65 19 158/107 (124) 100 Room Air 08/31/18 11:14 96.9 58 19 129/88 (102) 100 Room Air 08/31/18 09:12 97.0 I & O 09/01/18 07:00 Intake Total 5815 ml Output Total 7000 ml Balance -1185 ml Blood pressures are generally stable and are decreasing to a more normal range with the labetalol The abdomen is benign. Surgical incision is clean dry and intact. Extremities show no clubbing or cyanosis. There is no Homans sign. Assessment and plan postoperative day number 2 status post repeat delivery due to severe preeclampsia. Patient doing well and we will entertain discharge home today or tomorrow as she prefers September 02, 2018 Patient without complaint. She is ablating, voiding, tolerating oral intake has good pain control. She is requesting discharge home. Vital Signs Date Time Temp Pulse Resp B/P (MAP) Pulse Ox O2 Delivery O2 Flow Rate FiO2 09/02/18 07:46 97.6 85 18 136/71 (92) 98 Room Air 09/02/18 02:00 98.3 85 18 135/84 (101) 99 Room Air 09/01/18 20:00 98.7 92 18 147/94 (111) 99 Room Air 09/01/18 13:45 97.3 88 18 127/79 (95) 99 Room Air I & O 09/02/18 07:00 Intake Total 2550 ml Output Total 4150 ml Balance -1600 ml Vital Signs 09/02/18 07:46 Temp 97.6 Pulse 85 Resp 18 B/P (MAP) 136/71 (92) Pulse Ox 98 O2 Delivery Room Air Vital signs are stable. Patient is afebrile. Her blood pressures are well controlled with labetalol. The abdomen is benign. The surgical incision is clean dry and intact. Extremities show clubbing cyanosis. There is no Homans sign. There is some pretibial pitting edema that is within normal limits. Assessment and plan postoperative day number 3 status post repeat delivery at 36 weeks gestation due to severe preeclampsia. Baby is doing well at the NICU at [facility]. Will allow patient discharge home with follow- up in clinic Final Diagnosis 36 week repeat due to severe preeclampsia MELINDA GUAJARDO MD Sep 02, 2018 09:23
--- NOTE | 2018-09-02 09:27 | Discharge Summary ---
Discharge Summary 36 week repeat due to severe preeclampsia in a patient with gestational diabetes This patient is a 38-year-old white female admitted on August 30 2017 at 36 weeks gestation due to severe preeclampsia. Her was complicated by gestational diabetes. She was taken to the operating room on September 27 for repeat delivery that was performed without event.. Her baby required transfer to a NICU shortly after delivery. And has been stable and improving at the NICU at [facility]. Postoperative day number 1 the patient was without complaint. She did have been maintained on magnesium through the night post surgical day. By postoperative day number 1 her blood pressures have improved her lab work was improving and the magnesium was discontinued. She remains stable. On postoperative day number 2 patient's blood pressures were well controlled with labetalol 100 mg twice a day which was continued. She ambulated voided a good pain control. On postoperative day number 3 patient is ablating, voiding, tolerating omentectomy well has good pain control. Her blood pressures are stable and improving and are acceptable. It is determined she can be discharged home. Principal diagnoses this hospitalization is 36 week repeat . Secondary diagnoses include previous C-sections 5, severe preeclampsia, gestational diabetes Operation procedures include monitoring, IV fluids, spinal analgesia, repeat delivery, IV magnesium Discharge medications are Percocet and Colace and labetalol 100 mg twice a day Patient given appropriate discharge instructions verbally and writing. Clinical Quality Measures DVT/VTE Risk/Contraindication: Risk Factor Score Per Nursin RFS Level Per Nursing on Admit: 2=Moderate MELINDA GUAJARDO MD Sep 02, 2018 09:27
--- NOTE | 2018-09-02 09:40 | NUR ---
Dr Arango to see patient. pt to be discharged today
--- NOTE | 2018-09-02 10:00 | NUR ---
RN to bedside. bella out, benzoin and steri strips applied.
--- NOTE | 2018-09-02 10:20 | NUR ---
Discharge instructions explained, signed and copy to patient. pt verbalized understanding of instructions and denied questions. prescriptions called to pharmacy and percocet prescription handed to pt. gauze placed on lower left incision area due to skin on skin contact. pt instructed to change out if/when soiled. pt verbalized understanding.
--- NOTE | 2018-09-02 10:30 | NUR ---
Discharged to home. Ambulates self downstairs with belongings in hand and to private vehicle. accompanied by staff member
== END 2018-09-02 10:30 | disposition home or self-care (01) | DRG 788 ==
LOC: LDRP 14:53 → WS 08-31 11:39 → LDRP 08-31 12:55 → WS 08-31 12:55
PROVIDERS: ADMIT Obstetrics & Gynecology; ATTEND Obstetrics & Gynecology
PROC: 10D00Z1 Extraction of Products of Conception, Low, Open Approach (ICD-10-PCS; principal; 2018-08-30 16:44)
DX: O14.13 Severe pre-eclampsia, third trimester (principal); O24.415 Gestational diabetes mellitus in pregnancy, controlled by oral hypoglycemic drugs; O34.211 Maternal care for low transverse scar from previous cesarean delivery; Z3A.36 36 weeks gestation of pregnancy; Z37.0 Single live birth; Z79.84 Long term (current) use of oral hypoglycemic drugs
CPT/HCPCS: 36415; 80053; 82570; 82962; 83615; 84156; 85025; 86850; 86900; 86901; 90471; 90686; 90715; 94664

== ENCOUNTER → 2018-08-30 | Outpatient (CLI) | payer MEDICAID ==
[~2018-08-30] MED LIST changes: +DOCU100C37 PO; +LABE200T7 PO; +OXYC1TAB12 PO
== END ==
LOC: LABNPT 11:00
PROVIDERS: ATTEND Obstetrics & Gynecology
DX: O28.8 Other abnormal findings on antenatal screening of mother (principal)
CPT/HCPCS: 82570; 84156

== ENCOUNTER 2019-06-21 19:03 | Emergency (ER) | payer MEDICAID ==
[~2019-06-21] VITALS: Ht 157 cm; Wt 65.0 kg
[~2019-06-21 19:03] MED LIST changes: +DOCU100C37 PO; +LABE200T7 PO; +OXYC1TAB12 PO
--- NOTE | 2019-06-21 21:04 | ED Upper Extremity ---
General Chief Complaint: Upper Extremity Stated Complaint: L ARM AND HAND PAIN/SWELLING Nursing Triage Note: patient states approx 1 mo ago broke thumb L hand. states now feels stiff, swollen fingers and hand. unable to make a fist. swelling started today at 1600 Nursing Sepsis Screen: No Definite Risk Source: patient Exam Limitations: no limitations History of Present Illness Date Seen by Provider: Jun 21, 2019 Time Seen by Provider: 21:04 Initial Comments 39-year-old female patient presents with complaints of left hand pain 1 month. Patient reports left thumb fracture 1 month ago. Also states 2 weeks ago she smashed the left hand causing increased pain. Today at 1600 she noticed swelling. Reports pain is in the left fifth finger. Denies taking Tylenol at home. Onset: other (one month onset) Pain/Injury Location: left hand, left 5th finger Method of Injury: direct blow (2 weeks ago and one month) Modifying Factors: Improves With Immobilization; Worse With Movement Allergies and Home Medications Allergies Coded Allergies: ibuprofen (Unverified Allergy, Mild, 02/19/09) Home Medications Docusate Sodium 100 Mg Capsule, 100 MG PO BID Prescribed by: MELINDA BEY on 09/01/18 0858 Ferrous Sulfate 325 Mg Tablet, 325 MG PO TIDWM Prescribed by: SARAH WADE on 11/17/15 1525 Labetalol HCl 200 Mg Tablet, 100 MG PO BID Prescribed by: MELINDA BEY on 09/01/18 0858 Oxycodone HCl/Acetaminophen 1 Each Tablet, 1 TAB PO Q4HR PRN for PAIN-MODERATE TO SEVERE Prescribed by: MELINDA BEY on 09/01/18 0858 [id number]/Iron Fumarate/FA/Dss 1 Each Tablet, 1 EACH PO DAILY, (Reported) Patient Home Medication List Home Medication List Reviewed: Yes Review of Systems Constitutional: no symptoms reported Respiratory: no symptoms reported Cardiovascular: no symptoms reported Musculoskeletal: see HPI, joint pain (left hand), joint swelling (left-hand) Skin: No change in color, No lesions, No lumps Psychiatric/Neurological: Denies Numbness, Denies Paresthesia, Denies Tingling, Denies Weakness All Other Systems Reviewed Negative Unless Noted: Yes (Negative excepted noted.) Past Gvkcghh-Epfqnj-Wypbqq Hx Past Med/Social Hx: Reviewed Nursing Past Med/Soc Hx Patient Social History Alcohol Use: Denies Use Recreational Drug Use: No Smoking Status: Current Everyday Smoker Type Used: Cigarettes 2nd Hand Smoke Exposure: Yes Recent Foreign Travel: No Contact w/Someone Who Travel: No Recent Infectious Disease Expo: No Recent Hopitalizations: No Physical Abuse: No Sexual Abuse: No Mistreated: No Fear: No Immunizations Up To Date Tetanus Booster (TDap): Unknown Date of Influenza Vaccine: Apr 05, 2018 Seasonal Allergies Seasonal Allergies: No Past Medical History Surgeries: Yes ( X 4) Respiratory: No Cardiac: Yes (with current ) Neurological: No Sexually Transmitted Disease: No HIV/AIDS: No Genitourinary: No Gastrointestinal: No Musculoskeletal: Yes Chronic Back Pain Endocrine: Yes (GDM with current ) HEENT: No Cancer: No Psychosocial: No Integumentary: No Blood Disorders: No Family Medical History Reviewed Nursing Family Hx Diabetes mellitus 19 MOTHER G8 SISTER Hypertension (mother) Paraplegia 19 FATHER No Pertinent Family Hx Physical Exam Vital Signs Vital Signs - First Documented 06/21/19 19:44 Temp 36.8 Pulse 89 Resp 18 B/P (MAP) 109/72 (84) Pulse Ox 100 O2 Delivery Room Air Capillary Refill : Less Than 3 Seconds Height, Weight, BMI Height: 4'11.00" Weight: 176lbs. 0.8oz. [id number]; 26.00 BMI Method:Stated General Appearance: WD/WN, no apparent distress Cardiovascular: normal peripheral pulses, regular rate, rhythm, no murmur Respiratory: lungs clear, normal breath sounds, no respiratory distress, no accessory muscle use Shoulder: normal inspection, non-tender, no evidence of injury, normal ROM Elbow/Forearm: normal inspection, non-tender, no evidence of injury, normal ROM, Left Wrist: Yes normal inspection, Yes non-tender, Yes no evidence of injury, Yes normal ROM Hand: normal inspection (unable to appreciate swelling on exam), no evidence of injury, Left, bone tenderness (fifth metacarpal), limited ROM, soft tissue tenderness Neurologic/Tendon: normal sensation, normal motor functions, normal tendon functions, responds to pain, no evidence tendon injury Neurologic/Psychiatric: alert, normal mood/affect, oriented x 3 Skin: normal color, warm/dry; No ecchymosis Progress/Results/Core Measures Results/Orders My Orders Orders - JODY LANE Hand, Left, 3 Views (06/21/19 20:40) Tramadol Tablet (Ultram Tablet) (06/21/19 21:32) Vital Signs/I&O 06/21/19 06/21/19 06/21/19 19:44 21:43 21:46 Temp 36.8 36.8 36.5 Pulse 89 81 Resp 18 18 B/P (MAP) 109/72 (84) 105/66 (84) Pulse Ox 100 99 O2 Delivery Room Air Room Air Blood Pressure Mean: 84 Diagnostic Imaging Diagonstic Imaging: Xray Plain Films/CT/US/NM/MRI: hand Comments Date of Exam:06/21/19 HAND, LEFT, 3 VIEWS INDICATION: Crush injury, swelling and pain between the 4th and 5th metacarpals. FINDINGS: No acute appearing abnormality, in particular at the level of the 4th and 5th metacarpals no focal abnormality is identified. There is no dislocation. No suspicious foreign body. No gas or abnormal periosteal reaction. IMPRESSION: No acute appearing abnormality Dictated on workstation # [id number] Reviewed: Reviewed by Me (radiology report reviewed by me) Departure Communication (Admissions) Patient and evaluated. X-rays obtained which were negative. Findings discussed with the patient. Plan for discharge to home. Patient was placed in a aluminum colle's splint. Impression Primary Impression: Contusion of hand Qualified Codes: S60.222A - Contusion of left hand, initial encounter Disposition: HOME, SELF-CARE Condition: Improved Departure-Patient Inst. Decision time for Depature: 21:16 Referrals: [facility] (PCP/Family) Primary Care Physician Patient Instructions: Hand Pain (DC) Add. Discharge Instructions: All discharge instructions reviewed with patient and/or family. Voiced understanding. Tylenol over the counter as directed for pain. Elevate the hand on pillows. Ice pack for 20 minute intervals as needed. Activity as tolerated. You may use the hand splint as needed for pain relief. Follow-up with your family practitioner next week. Call Monday morning for appointment. Return to the emergency department for worsened symptoms or any other concerns. JODY LANE Jun 21, 2019 21:04
--- NOTE | 2019-06-21 21:09 | Diagnostic Imaging Report ---
INDICATION: Crush injury, swelling and pain between the 4th and 5th metacarpals. FINDINGS: No acute appearing abnormality, in particular at the level of the 4th and 5th metacarpals no focal abnormality is identified. There is no dislocation. No suspicious foreign body. No gas or abnormal periosteal reaction. IMPRESSION: No acute appearing abnormality Dictated by: Dictated on workstation # [id number]
[2019-06-21 21:46] VITALS: BP 105/66
== END 2019-06-21 21:46 | disposition home or self-care (01) ==
LOC: EDUNIT# 19:03 → ER 19:04
DX: S60.222A Contusion of left hand, initial encounter (principal); F17.210 Nicotine dependence, cigarettes, uncomplicated; Z88.6 Allergy status to analgesic agent; Z82.49 Family history of ischemic heart disease and other diseases of the circulatory system; W22.8XXA Striking against or struck by other objects, initial encounter
CPT/HCPCS: 73130

== ENCOUNTER 2019-07-15 16:16 | Emergency (ER) | payer MEDICAID ==
[~2019-07-15] VITALS: Ht 149.8 cm; Wt 63.8 kg
--- NOTE | 2019-07-15 17:24 | NUR ---
NOTIFIED CANDELARIO CORDOVA PT CONDITION IS WORSE.
[2019-07-15 18:45] LABS: BILIRUBIN,URINE NEGATIVE (NEGATIVE); CLARITY,URINE CLEAR; COLOR,URINE YELLOW; GLUCOSE, URINE (UA) NEGATIVE (NEGATIVE); KETONES,URINE NEGATIVE (NEGATIVE); LEUKOCYTE ESTERASE ,URINE 1+ (NEGATIVE); NITRITE,URINE NEGATIVE (NEGATIVE); PROTEIN,URINE NEGATIVE (NEGATIVE)
--- NOTE | 2019-07-15 18:48 | ED Abdominal Pain ---
General Chief Complaint: Abdominal/GI Problems Stated Complaint: 10 WKS PREG/CRAMPING Nursing Triage Note: Pt to ED with c/o abdominal pain that begins on the L side radiating across front of abdomen and into back. Pt describes pain as cramping. Pain has persisted off and on for over a week, but has worsened today. Pt reports being 10+ weeks and reports positive testing that baby has Down Syndroms. Pt has not called OB (Dr. Fernando). Sepsis Screen: No Definite Risk (TRANG NOLEN MEDICAL STUDENT) Source of Information: Patient Exam Limitations: No Limitations (ARIANNE PARKER MD) History of Present Illness Initial Comments Ms. Carroll is a 39 year old female who presents to the ED via private vehicle for abdominal pain. Patient reports that she has had severe, cramping, lower abdominal pain since 2pm today. She has experienced episodes of this abdominal pain over the last week, but they have remitted within 2 hours. This episode came on suddenly and increased in severity over the last ~4 hours. She now rates her pain as a 10/10 in severity. It is located in both lower quadrants with radiation to the back. She describes it as sharp & cramping. She has associated nausea, but no vomiting. She reports increased urinary frequency since her current began, but no burning or dysuria. She denies any diarrhea or constipation, her last bowel movement was this morning and well-formed. Patient is currently , 10 weeks & 3 days confirmed via u/s per patient. Past pregnancies have been complicated by HTN, PreE, & Gestational diabetes. She reports that all of her children were , delivered via c/s x6. Patient has a history of Chlamydia that was treated when she was 19. She is currently sexually active with her in a monogamous relationship. (TRANG NOLEN MEDICAL STUDENT) Date Seen by Provider: Jul 15, 2019 Time Seen by Provider: 18:09 (ARIANNE PARKER MD) Allergies and Home Medications Allergies Coded Allergies: ibuprofen (Unverified Allergy, Mild, 02/19/09) Home Medications Docusate Sodium 100 Mg Capsule, 100 MG PO BID Prescribed by: MELINDA BEY on 09/01/18 0860 Ferrous Sulfate 325 Mg Tablet, 325 MG PO TIDWM Prescribed by: SARAH WADE on 11/17/15 1525 Ketorolac Tromethamine 10 Mg Tablet, 10 MG PO Q6H PRN for PAIN-MODERATE (5-7) Prescribed by: ARIANNE HANSEN on 07/15/192051 Labetalol HCl 200 Mg Tablet, 100 MG PO BID Prescribed by: MELINDA BEY on 09/01/18 0858 Oxycodone HCl/Acetaminophen 1 Each Tablet, 1 TAB PO Q4HR PRN for PAIN-MODERATE TO SEVERE Prescribed by: MELINDA BEY on 09/01/18 0858 [id number]/Iron Fumarate/FA/Dss 1 Each Tablet, 1 EACH PO DAILY, (Reported) Patient Home Medication List Home Medication List Reviewed: Yes (ARIANNE PARKER MD) Review of Systems Review of Systems Constitutional: no symptoms reported, see HPI EENTM: No Symptoms Reported Respiratory: No Symptoms Reported Cardiovascular: No Symptoms Reported Gastrointestinal: Abdominal Pain, Nausea Genitourinary: See HPI Musculoskeletal: no symptoms reported Skin: no symptoms reported Psychiatric/Neurological: No Symptoms Reported Endocrine: No Symptoms Reported Hematologic/Lymphatic: No Symptoms Reported (TRANG NOLEN MEDICAL STUDENT) All Other Systems Reviewed Negative Unless Noted: Yes (TRANG NOLEN MEDICAL STUDENT) Past Ojjjnmu-Aklmpl-Zqxtkx Hx Patient Social History Alcohol Use: Denies Use Recreational Drug Use: No Smoking Status: Current Everyday Smoker Type Used: Cigarettes 2nd Hand Smoke Exposure: Yes Recent Foreign Travel: No Contact w/Someone Who Travel: No Recent Infectious Disease Expo: No Recent Hopitalizations: No (TRANG NOLEN MEDICAL STUDENT) Immunizations Up To Date Tetanus Booster (TDap): Unknown Date of Influenza Vaccine: Apr 05, 2018 (TRAGN NOLEN MEDICAL STUDENT) Seasonal Allergies Seasonal Allergies: No (TRANG NOLEN MEDICAL STUDENT) Past Medical History Surgeries: Yes ( X 4) Section, Gallbladder Respiratory: No Cardiac: Yes (with last ) Hypertension Neurological: No Sexually Transmitted Disease: No HIV/AIDS: No Genitourinary: No Gastrointestinal: No Musculoskeletal: Yes Chronic Back Pain Endocrine: Yes (GDM with last ) HEENT: No Cancer: No Psychosocial: No Integumentary: No Blood Disorders: No (TRANG NOLEN MEDICAL STUDENT) Sexually Transmitted Disease: Yes (Chlamydia) (ARIANNE PARKER MD) Family Medical History Diabetes mellitus 19 MOTHER G8 SISTER Hypertension (mother) Paraplegia 19 FATHER No Pertinent Family Hx (TRANG NOLEN MEDICAL STUDENT) Physical Exam Vital Signs Vital Signs - First Documented 07/15/19 16:30 Temp 36.6 Pulse 92 Resp 13 B/P (MAP) 124/77 (93) Pulse Ox 99 O2 Delivery Room Air (ARIANNE PARKER MD) Vital Signs Capillary Refill : Less Than 3 Seconds (TRANG NOLEN MEDICAL STUDENT) Height/Weight/BMI Height: 4'11.00" Weight: 176lbs. 0.8oz. 79.758798bq; 28.00 BMI Method:Stated General Appearance: moderate distress HEENT: normal ENT inspection Neck: normal inspection Respiratory: lungs clear, normal breath sounds Cardiovascular: regular rate, rhythm, no edema, no JVD, no murmur Gastrointestinal: normal bowel sounds, non tender, soft Rectal: deferred Extremities: normal range of motion Back: no CVA tenderness, no vertebral tenderness Neurologic/Psychiatric: no motor/sensory deficits, alert, oriented x 3 Skin: warm/dry Lymphatic: no adenopathy (TRANG NOLEN MEDICAL STUDENT) Progress/Results/Core Measures Results/Orders Lab Results Laboratory Tests Test 07/15/19 17:52 07/15/19 18:46 Range/Units Urine Color YELLOW Urine Clarity CLEAR Urine pH 7.0 5-9 Urine Specific [place] 1.015 L 1.016-1.022 Urine Protein NEGATIVE NEGATIVE Urine Glucose (UA) NEGATIVE NEGATIVE Urine Ketones NEGATIVE NEGATIVE Urine Nitrite NEGATIVE NEGATIVE Urine Bilirubin NEGATIVE NEGATIVE Urine Urobilinogen 0.2 < = 1.0 MG/DL Urine Leukocyte Esterase 1+ H NEGATIVE Urine RBC (Auto) NEGATIVE NEGATIVE Urine RBC NONE /HPF Urine WBC RARE /HPF Urine Squamous Epithelial Cells 10-25 H /HPF Urine Crystals NONE /LPF Urine Bacteria TRACE /HPF Urine Casts NONE /LPF Urine Mucus NEGATIVE /LPF Urine Culture Indicated NO White Blood Count 7.6 4.3-11.0 10^3/uL Red Blood Count 3.45 L 4.35-5.85 10^6/uL Hemoglobin 10.6 L 11.5-16.0 G/DL Hematocrit 32 L 35-52 % Mean Corpuscular Volume 91 80-99 FL Mean Corpuscular Hemoglobin 31 25-34 PG Mean Corpuscular Hemoglobin Concent 34 32-36 G/DL Red Cell Distribution Width 13.8 10.0-14.5 % Platelet Count 382 130-400 10^3/uL Mean Platelet Volume 7.9 7.4-10.4 FL Neutrophils (%) (Auto) 61 42-75 % Lymphocytes (%) (Auto) 30 12-44 % Monocytes (%) (Auto) 7 0-12 % Eosinophils (%) (Auto) 2 0-10 % Basophils (%) (Auto) 0 0-10 % Neutrophils # (Auto) 4.6 1.8-7.8 X 10^3 Lymphocytes # (Auto) 2.3 1.0-4.0 X 10^3 Monocytes # (Auto) 0.5 0.0-1.0 X 10^3 Eosinophils # (Auto) 0.2 0.0-0.3 10^3/uL Basophils # (Auto) 0.0 0.0-0.1 10^3/uL Sodium Level 136 135-145 MMOL/L Potassium Level 4.2 3.6-5.0 MMOL/L Chloride Level 104 98-107 MMOL/L Carbon Dioxide Level 24 21-32 MMOL/L Anion Gap 8 5-14 MMOL/L Blood Urea Nitrogen 8 7-18 MG/DL Creatinine 0.70 0.60-1.30 MG/DL Estimat Glomerular Filtration Rate > 60 BUN/Creatinine Ratio 11 Glucose Level 86 70-105 MG/DL Calcium Level 9.2 8.5-10.1 MG/DL Corrected Calcium 9.3 8.5-10.1 MG/DL Total Bilirubin 0.2 0.1-1.0 MG/DL Aspartate Amino Transf (AST/SGOT) 17 5-34 U/L Alanine Aminotransferase (ALT/SGPT) 21 0-55 U/L Alkaline Phosphatase 50 40-136 U/L C-Reactive Protein High Sensitivity 0.34 0.00-0.50 MG/DL Total Protein 7.1 6.4-8.2 GM/DL Albumin 3.9 3.2-4.5 GM/DL Human Chorionic Gonadotropin, Quant 06114 H <5 MIU/ML (ARIANNE PARKER MD) My Orders Orders - ARIANNE PARKER MD Ua Culture If Indicated (07/15/19 18:09) Cbc With Automated Diff (07/15/19 18:35) Comprehensive Metabolic Panel (07/15/19 18:35) Hs C Reactive Protein (07/15/19 18:35) Hcg,Quantitative (07/15/19 18:35) Ed Iv/Invasive Line Start (07/15/19 18:35) Ketorolac Injection (Toradol Injection) (07/15/19 20:15) Acetaminophen Tablet (Tylenol Tablet) (07/15/19 20:45) (ARIANNE PARKER MD) Medications Given in ED Current Medications Medications Dose Ordered Sig/Tim Route Start Time Stop Time Status Last Admin Dose Admin Acetaminophen 1,000 mg ONCE ONCE PO 07/15/19 20:45 07/15/19 20:46 DC 07/15/19 20:53 1,000 MG Ketorolac Tromethamine 15 mg ONCE ONCE IVP 07/15/19 20:15 07/15/19 20:16 DC 07/15/19 20:17 15 MG (ARIANNE PARKER MD) Vital Signs/I&O 07/15/19 07/15/19 16:30 21:00 Temp 36.6 36.6 Pulse 92 76 Resp 13 16 B/P (MAP) 124/77 (93) 122/75 (93) Pulse Ox 99 99 O2 Delivery Room Air Room Air (ARIANNE PARKER MD) Blood Pressure Mean: 93 Departure Impression Primary Impression: Pelvic pain in Disposition: 01 HOME, SELF-CARE Condition: Improved Departure-Patient Inst. Decision time for Depature: 20:10 (ARIANNE PARKER MD) Referrals: MELINDA ARANGO MD (PCP) Primary Care Physician [facility]/ (Family) Primary Care Physician Patient Instructions: Acute Pelvic Pain Add. Discharge Instructions: You may use Tylenol (acetaminophen) up to 1000 mg every 6 hours as needed for primary pain management. Add Toradol (ketorolac) as prescribed for further pain management. Return to care in the ER if you develop worsening symptoms such as escalating pain despite treatment, fevers over 100, vaginal bleeding, etc. Avoid excessive strenuous activity or anything vaginally until cleared by Dr. Arango. Please follow-up with Dr. Arango's office tomorrow. If pain persists you may need further workup such as a complete abdominal ultrasound or MRI. This can be arranged on an outpatient basis during business hours. Unisom purchased [id number] may be safely use to help with sleep and can control nausea and the next day. All discharge instructions reviewed with patient and/or family. Voiced understanding. Scripts Ketorolac Tromethamine (Ketorolac Tromethamine) 10 Mg Tablet 10 MG PO Q6H PRN for PAIN-MODERATE (5-7), #20 TAB Prov: ARIANNE PARKER MD 07/15/19 This patient was interviewed and examined by me personally along with Trang Nolen, MS 4. I agree with MS 4 history, physical, assessment, and documentation with the following additions and changes. This 39-year-old woman at approximately 10 weeks gestational age presents to the emergency room with lower abdominal/pelvic pain. She is a patient of Dr. Arango and has established care with him for this . She reports having had an ultrasound and a pelvic exam in the office already. This case was also discussed with Dr. Arango who states the fetus seems to have a cystic hygroma and also there was positive screening for a trisomy defect. Patient has been having pain even since before the started. Dr. Arango does not think the nature of her pain is consistent with anything involving the . Patient denies any vaginal or urinary symptoms other than some typical increased frequency since becoming . Labs were unremarkable. HCG was appropriate for gestational age. Pain was treated with Toradol and Tylenol. Patient has an ibuprofen allergy but tolerates Toradol without difficulty. No imaging workup was performed in the ER. Outpatient imaging workup can be pursued with safer modality such as MRI or complete abdominal ultrasound. Pain management was discussed with Dr. Arango. Exam: Gen.: Alert, oriented, mild distress, tearful HEENT: Normocephalic, mucous membranes moist Heart: Regular rate and rhythm without murmur Lungs: Clear to auscultation bilaterally with normal effort Abdomen: Soft, tender in the lower abdomen, especially in the suprapubic region, normal bowel sounds Skin: Normal to inspection, no rashes Neuropsych: Alert, oriented, no focal deficits, tearful (ARIANNE PARKER MD) Copy Copies To 1: MELINDA ARANGO MD, [employer]LEX MEDICAL STUDENT Jul 15, 2019 18:48 ARIANNE PARKER MD Jul 15, 2019 20:51
[2019-07-15 19:02] LABS: BASOPHILS % (AUTO) 0 % (0-10); EOSINOPHILS # (AUTO) 0.2 10^3/uL (0.0-0.3); EOSINOPHILS % (AUTO) 2 % (0-10); HEMATOCRIT 32 % (35-52); HEMOGLOBIN 10.6 G/DL (11.5-16.0); LYMPHOCYTES # (AUTO) 2.3 X 10^3 (1.0-4.0); LYMPHOCYTES % (AUTO) 30 % (12-44); MEAN CORPUSCULAR HEMOGLOBIN 31 PG (25-34); MEAN CORPUSCULAR HGB CONC 34 G/DL (32-36); MEAN CORPUSCULAR VOLUME 91 FL (80-99); MEAN PLATELET VOLUME 7.9 FL (7.4-10.4); MONOCYTES # (AUTO) 0.5 X 10^3 (0.0-1.0); MONOCYTES % (AUTO) 7 % (0-12); NEUTROPHILS # (AUTO) 4.6 X 10^3 (1.8-7.8); NEUTROPHILS % (AUTO) 61 % (42-75); PLATELET COUNT 382 10^3/uL (130-400); RED CELL DISTRIBUTION WIDTH 13.8 % (10.0-14.5); WHITE BLOOD COUNT 7.6 10^3/uL (4.3-11.0)
[2019-07-15 19:08] LABS: BACTERIA,URINE TRACE /HPF; WBC,URINE RARE /HPF
[2019-07-15 19:15] LABS: ALANINE AMINOTRANSFERASE 21 U/L (0-55); ALBUMIN 3.9 GM/DL (3.2-4.5); ALKALINE PHOSPHATASE 50 U/L (40-136); BILIRUBIN,TOTAL 0.2 MG/DL (0.1-1.0); BUN/CREATININE RATIO 11; CALCIUM 9.2 MG/DL (8.5-10.1); CARBON DIOXIDE 24 MMOL/L (21-32); CHLORIDE 104 MMOL/L (98-107); GFR ESTIMATED > 60; GLUCOSE 86 MG/DL (70-105); POTASSIUM 4.2 MMOL/L (3.6-5.0); SODIUM 136 MMOL/L (135-145); TOTAL PROTEIN 7.1 GM/DL (6.4-8.2)
[2019-07-15] MEDS ORDERED: KETOROLAC 30 MG/ML VIAL IVP ONE (20:15)
[2019-07-15] MEDS ORDERED: ACETAMINOPHEN 500 MG TAB (TYLENOL) PO ONE (20:45)
[2019-07-15] MEDS ORDERED: KETO10TA PO (20:52)
[2019-07-15 21:00] VITALS: BP 122/75
[2019-07-19] MEDS ORDERED: OXYC1TAB87 PO (13:11)
--- NOTE | 2019-07-19 13:12 | Discharge Instructions ---
Discharge Instructions Discharge Medications New, Converted or Re-Newed RX: RX on Chart Patient Instructions Return to The Hospital For: as directed Activity & Diet Activity as Tolerated: No Orders-Post D/C & Referrals Follow Up Appt: Call to make follow up appt. for patient in 2 weeks. Activity: Rest for 24 hours, than as tolerated. Diet: As tolerated-Clear Liquids only if nauseated. shower or tub bathe as desired. No driving for 24 hours, no alcoholic beverages for 24 hours, and nothing per vagina (no tampons, douching, or intercourse) for 2 weeks. Patient to return to the clinic as soon as possible for: Temperature greater than 101F, Severe Pain, Foul discharge from incision or vagina, Excessive Bleeding (more than a period). MELINDA GUAJARDO MD Jul 19, 2019 13:12
== END 2019-07-15 21:01 | disposition home or self-care (01) ==
LOC: EDUNIT# 16:16 → ER 16:17
DX: O26.891 Other specified pregnancy related conditions, first trimester (principal); R10.2 Pelvic and perineal pain; O16.1 Unspecified maternal hypertension, first trimester; O99.331 Smoking (tobacco) complicating pregnancy, first trimester; F17.210 Nicotine dependence, cigarettes, uncomplicated; Z3A.10 10 weeks gestation of pregnancy; Z86.32 Personal history of gestational diabetes; Z88.6 Allergy status to analgesic agent; Z82.49 Family history of ischemic heart disease and other diseases of the circulatory system
CPT/HCPCS: 36415; 80053; 81000; 84702; 85025; 86141; 96374

== ENCOUNTER 2019-07-25 07:50 | Emergency (ER) | payer MEDICAID ==
[~2019-07-25] VITALS: Ht 149 cm; Wt 67.2 kg
[~2019-07-25 07:50] MED LIST changes: +KETO10TA PO; +OXYC1TAB87 PO
[2019-07-25 08:10] LABS: BASOPHILS % (AUTO) 0 % (0-10); EOSINOPHILS # (AUTO) 0.1 10^3/uL (0.0-0.3); EOSINOPHILS % (AUTO) 1 % (0-10); HEMATOCRIT 34 % (35-52); HEMOGLOBIN 11.9 G/DL (11.5-16.0); LYMPHOCYTES # (AUTO) 1.6 X 10^3 (1.0-4.0); LYMPHOCYTES % (AUTO) 25 % (12-44); MEAN CORPUSCULAR HEMOGLOBIN 32 PG (25-34); MEAN CORPUSCULAR HGB CONC 35 G/DL (32-36); MEAN CORPUSCULAR VOLUME 90 FL (80-99); MEAN PLATELET VOLUME 7.9 FL (7.4-10.4); MONOCYTES # (AUTO) 0.5 X 10^3 (0.0-1.0); MONOCYTES % (AUTO) 8 % (0-12); NEUTROPHILS # (AUTO) 4.4 X 10^3 (1.8-7.8); NEUTROPHILS % (AUTO) 66 % (42-75); PLATELET COUNT 404 10^3/uL (130-400); RED CELL DISTRIBUTION WIDTH 13.5 % (10.0-14.5); WHITE BLOOD COUNT 6.6 10^3/uL (4.3-11.0)
[2019-07-25 08:28] LABS: ALANINE AMINOTRANSFERASE 18 U/L (0-55); ALBUMIN 4.6 GM/DL (3.2-4.5); ALKALINE PHOSPHATASE 47 U/L (40-136); BILIRUBIN,TOTAL 0.3 MG/DL (0.1-1.0); BUN/CREATININE RATIO 10; CALCIUM 9.9 MG/DL (8.5-10.1); CARBON DIOXIDE 24 MMOL/L (21-32); CHLORIDE 105 MMOL/L (98-107); CREATININE SERUM 0.73 MG/DL (0.60-1.30); GFR ESTIMATED > 60; GLUCOSE 97 MG/DL (70-105); POTASSIUM 3.3 MMOL/L (3.6-5.0); SODIUM 139 MMOL/L (135-145); TOTAL PROTEIN 8.1 GM/DL (6.4-8.2)
--- NOTE | 2019-07-25 08:59 | ED GU-Female ---
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 Pt reports she is aprox 11 weeks preg and had an US on 07/19 and told she was having a miscarriage. Pt denies abdominal pain at this time. Nursing Sepsis Screen: No Definite Risk Source: patient Exam Limitations: no limitations History of Present Illness Date Seen by Provider: Jul 25, 2019 Time Seen by Provider: 07:55 Initial Comments Here with report of acute onset of vaginal bleeding that started approximately 20 prior to arrival. She is approximately 11 weeks . She knows that she is having miscarriage after ultrasound Dr. Arango showed no heartbeat and recently what appeared to be some tissue destruction per the patient. Not significantly and pain but having a fair amount of bleeding and has blood through her clothes on arrival. Timing/Duration: this morning, getting worse Severity/Quality: mild, burning Location: vaginal Radiation: none Activities at Onset: none Prior Genitourinary Problems: none Modifying Factors: Improves With Resting Associated Symptoms: No fever/chills, No nausea/vomiting, No urinary frequency Allergies and Home Medications Allergies Coded Allergies: ibuprofen (Unverified Allergy, Mild, 02/19/09) Home Medications Docusate Sodium 100 Mg Capsule, 100 MG PO BID Prescribed by: MELINDA BEY on 09/01/18 0858 Ferrous Sulfate 325 Mg Tablet, 325 MG PO TIDWM Prescribed by: SARAH WADE on 11/17/15 1525 Ketorolac Tromethamine 10 Mg Tablet, 10 MG PO Q6H PRN for PAIN-MODERATE (5-7) Prescribed by: ARIANNE HANSEN on 07/15/192051 Labetalol HCl 200 Mg Tablet, 100 MG PO BID Prescribed by: MELINDA BEY on 09/01/18 0858 Oxycodone HCl/Acetaminophen 1 Each Tablet, 1 TAB PO Q4HR PRN for PAIN-MODERATE TO SEVERE Prescribed by: MELINDA BEY on 09/01/18 0858 Oxycodone HCl/Acetaminophen 1 Each Tablet, 1 TAB PO Q4H Prescribed by: MELINDA BEY on 07/19/19 1311 [id number]/Iron Fumarate/FA/Dss 1 Each Tablet, 1 EACH PO DAILY, (Reported) Patient Home Medication List Home Medication List Reviewed: Yes Review of Systems Review of Systems Constitutional: see HPI; No chills, No fever EENTM: no symptoms reported Respiratory: no symptoms reported Cardiovascular: no symptoms reported Gastrointestinal: see HPI Genitourinary: see HPI; denies dysuria, denies frequency; pain : Yes Musculoskeletal: no symptoms reported Skin: no symptoms reported Psychiatric/Neurological: No Symptoms Reported All Other Systemes Reviewed Negative Unless Noted: Yes Past Qldyybi-Pvownq-Kqkrby Hx Past Med/Social Hx: Reviewed Nursing Past Med/Soc Hx Patient Social History Alcohol Use: Denies Use Recreational Drug Use: No Smoking Status: Current Everyday Smoker Type Used: Cigarettes 2nd Hand Smoke Exposure: Yes Recent Foreign Travel: No Contact w/Someone Who Travel: No Recent Infectious Disease Expo: No Recent Hopitalizations: No Physical Abuse: No Sexual Abuse: No Mistreated: No Fear: No Immunizations Up To Date Tetanus Booster (TDap): Unknown Date of Influenza Vaccine: Apr 05, 2018 Seasonal Allergies Seasonal Allergies: No Past Medical History Surgeries: Yes ( X 4) Section, Gallbladder Respiratory: No Cardiac: Yes (with last ) Hypertension Neurological: No Hx : 7 Hx Para: 6 Sexually Transmitted Disease: Yes (Chlamydia) HIV/AIDS: No Genitourinary: No Gastrointestinal: No Musculoskeletal: Yes Chronic Back Pain Endocrine: Yes (GDM with last ) HEENT: No Cancer: No Psychosocial: No Integumentary: No Blood Disorders: No Family Medical History Reviewed Nursing Family Hx Diabetes mellitus 19 MOTHER G8 SISTER Hypertension (mother) Paraplegia 19 FATHER No Pertinent Family Hx Physical Exam Vital Signs Vital Signs - First Documented 07/25/19 07:50 Pulse 120 Resp 18 B/P (MAP) 136/94 (108) Pulse Ox 99 Capillary Refill : Less Than 3 Seconds Height, Weight, BMI Height: 4'11.00" Weight: 176lbs. 0.8oz. 79.693580iv; 30.00 BMI Method:Stated General Appearance: WD/WN, no apparent distress HEENT: PERRL/EOMI, pharynx normal Neck: full range of motion, supple Cardiovascular: no murmur, tachycardia Respiratory: lungs clear, no accessory muscle use Gastrointestinal: non tender, soft Pelvic: normal external exam, vaginal bleeding, other (cervix is closed. There was a clot within the vaginal vault but was removed. No tissue within a clot noted. No tissue at the cervical os.) Back: normal inspection, no CVA tenderness, no vertebral tenderness Extremities: non-tender, normal inspection Neurologic/Psychiatric: alert, oriented x 3 Skin: normal color, warm/dry Progress/Results/Core Measures Suspected Sepsis Recent Fever Within 48 Hours: No Infection Criteria Present: None New/Unexplained Altered Menta: No Sepsis Screen: No Definite Risk SIRS Temperature: Pulse: 120 Respiratory Rate: 18 Laboratory Tests 07/25/19 08:00: White Blood Count 6.6 Blood Pressure 136 /94 Mean: 108 Laboratory Tests 07/25/19 08:00: Creatinine 0.73, Platelet Count 404H, Total Bilirubin 0.3 Results/Orders Lab Results Laboratory Tests Test 07/25/19 08:00 Range/Units White Blood Count 6.6 4.3-11.0 10^3/uL Red Blood Count 3.76 L 4.35-5.85 10^6/uL Hemoglobin 11.9 11.5-16.0 G/DL Hematocrit 34 L 35-52 % Mean Corpuscular Volume 90 80-99 FL Mean Corpuscular Hemoglobin 32 25-34 PG Mean Corpuscular Hemoglobin Concent 35 32-36 G/DL Red Cell Distribution Width 13.5 10.0-14.5 % Platelet Count 404 H 130-400 10^3/uL Mean Platelet Volume 7.9 7.4-10.4 FL Neutrophils (%) (Auto) 66 42-75 % Lymphocytes (%) (Auto) 25 12-44 % Monocytes (%) (Auto) 8 0-12 % Eosinophils (%) (Auto) 1 0-10 % Basophils (%) (Auto) 0 0-10 % Neutrophils # (Auto) 4.4 1.8-7.8 X 10^3 Lymphocytes # (Auto) 1.6 1.0-4.0 X 10^3 Monocytes # (Auto) 0.5 0.0-1.0 X 10^3 Eosinophils # (Auto) 0.1 0.0-0.3 10^3/uL Basophils # (Auto) 0.0 0.0-0.1 10^3/uL Sodium Level 139 135-145 MMOL/L Potassium Level 3.3 L 3.6-5.0 MMOL/L Chloride Level 105 98-107 MMOL/L Carbon Dioxide Level 24 21-32 MMOL/L Anion Gap 10 5-14 MMOL/L Blood Urea Nitrogen 7 7-18 MG/DL Creatinine 0.73 0.60-1.30 MG/DL Estimat Glomerular Filtration Rate > 60 BUN/Creatinine Ratio 10 Glucose Level 97 70-105 MG/DL Calcium Level 9.9 8.5-10.1 MG/DL Corrected Calcium 8.5-10.1 MG/DL Total Bilirubin 0.3 0.1-1.0 MG/DL Aspartate Amino Transf (AST/SGOT) 18 5-34 U/L Alanine Aminotransferase (ALT/SGPT) 18 0-55 U/L Alkaline Phosphatase 47 40-136 U/L Total Protein 8.1 6.4-8.2 GM/DL Albumin 4.6 H 3.2-4.5 GM/DL My Orders Orders - CJ CARDENAS MD Cbc With Automated Diff (07/25/19 08:03) Ed Iv/Invasive Line Start (07/25/19 08:03) Ed Iv/Invasive Line Start (07/25/19 08:03) Comprehensive Metabolic Panel (07/25/19 08:03) Type And Screen (07/25/19 08:03) Lactated Ringers (Lr 1000 Ml Iv Solution (07/25/19 09:03) Us Ob Single Fetus<14 [id number] (07/25/19 08:03) Medications Given in ED Current Medications Medications Dose Ordered Sig/Tim Route Start Time Stop Time Status Last Admin Dose Admin Lactated Ringer's 1,000 ml @ 0 mls/hr Q0M ONCE IV 07/25/19 09:03 07/25/19 09:04 DC 07/25/19 09:41 0 MLS/HR Vital Signs/I&O 07/25/19 07:50 Pulse 120 Resp 18 B/P (MAP) 136/94 (108) Pulse Ox 99 Capillary Refill : Less Than 3 Seconds Blood Pressure Mean: 108 Progress Note : Progress Note Seen and evaluated. IV 2, labs, LR 1 L bolus, type and screen and ultrasound ordered. Patient is O+. Monitor patient. 0940: Ultrasound complete and shows intrauterine of approximately 11 weeks without noted heart tones. Pelvic exam complete and noted above. Patient is deciding if she would like to pursue D&C or continue at home. Monitor patient. 1023: I have left messages with Dr. Arango. Patient does not want to pursue D&C today and she would like to think about it and watch for another day and see if miscarriage will progress naturally. A reasonable plan at this point. Discharged home with return precautions. Patient verbalized understanding of instructions and agreement with plan. Diagnostic Imaging Diagonstic Imaging: Ultrasound Plain Films/CT/US/NM/MRI: other Comments [facility] [place] [place] NAME: VISHNU LEBRON [facility] REC#: [id number] PT STATUS: REG ER : 1980 PHYSICIAN: CJ CARDENAS MD ADMIT DATE: 07/25/19/ER Draft Date of Exam:07/25/19 US OB SINGLE FETUS<14 [id number] PROCEDURE: US OB SINGLE FETUS <14 WKS. TECHNIQUE: Multiple real-time grayscale images were obtained over the gravid uterus in various projections. INDICATION: Active miscarriage There are no prior studies available for comparison. There is a gestational sac within the uterus. Within the uterus there is a fetus whose crown-rump length suggest the estimated gestational age is 11 weeks +/- 1 week. However there are no heart tones identified. The amniotic fluid volume is within normal limits. The placenta is posterior. There is no clear evidence for an abruption. Neither ovary was visualized. There is no pelvic mass or free fluid collection noted. IMPRESSION: 1. demise. 2. These results were discussed with Dr. Douglas Cardenas at the time of this dictation. CRITICAL FINDING: Dictated on workstation # [id number] Dict: 07/25/19 0948 Trans: 07/25/19 1031 HANNY [id number] Interpreted by: DEVEN PADRON MD Electronically signed by: Departure Impression Primary Impression: Incomplete miscarriage Disposition: ADMITTED INPATIENT Condition: Stable Departure-Patient Inst. Referrals: MELINDA ARANGO MD (PCP) Primary Care Physician [facility] (Family) Primary Care Physician Patient Instructions: Miscarriage (DC) Add. Discharge Instructions: All discharge instructions reviewed with patient and/or family. Voiced understanding. Continue home medications as directed. Follow-up with Dr. Arango next week as scheduled. You may take Tylenol as needed for pain. If that is not working you may take the prescribed pain medicine but don't take both at the same time as they both have acetaminophen in them. Return for worse pain, bleeding greater than 2 pads per hour for more than 2 hours, weakness, fevers, breathing problems or other concerns as needed. Scripts Hydrocodone Bit/Acetaminophen (LORTAB 7.5 MG TABLET) 1 Ea Tablet 1 EACH PO Q6H, #6 TAB 0 Refills Prov: CJ CARDENAS MD 07/25/19 Copy Copies To 1: MELINDA ARANGO MD, TIMOTHY D MD Jul 25, 2019 08:59
[2019-07-25] MEDS ORDERED: LACTATED RINGERS 1,000 ML IV ONE (09:03)
--- NOTE | 2019-07-25 10:32 | Diagnostic Imaging Report ---
PROCEDURE: US OB SINGLE FETUS <14 WKS. TECHNIQUE: Multiple real-time grayscale images were obtained over the gravid uterus in various projections. INDICATION: Active miscarriage There are no prior studies available for comparison. There is a gestational sac within the uterus. Within the uterus there is a fetus whose crown-rump length suggest the estimated gestational age is 11 weeks +/- 1 week. However there are no heart tones identified. The amniotic fluid volume is within normal limits. The placenta is posterior. There is no clear evidence for an abruption. Neither ovary was visualized. There is no pelvic mass or free fluid collection noted. IMPRESSION: 1. demise. 2. These results were discussed with Dr. Douglas Edouard at the time of this dictation. CRITICAL FINDING: Dictated by: Dictated on workstation # [id number]
[2019-07-25] MEDS ORDERED: HYDR-34 PO (10:41)
[2019-07-25 10:54] VITALS: BP 113/77
== END 2019-07-25 10:54 | disposition other institution (70) ==
LOC: EDUNIT# 07:50 → ER 07:51
DX: O03.4 Incomplete spontaneous abortion without complication (principal); I10 Essential (primary) hypertension; F17.210 Nicotine dependence, cigarettes, uncomplicated; Z88.6 Allergy status to analgesic agent; Z86.32 Personal history of gestational diabetes; Z82.49 Family history of ischemic heart disease and other diseases of the circulatory system
CPT/HCPCS: 36415; 76801; 80053; 85025; 86850; 86900; 86901

== ENCOUNTER 2020-04-10 16:32 | Emergency (ER) | payer MEDICAID ==
[~2020-04-10] VITALS: Ht 149.8 cm; Wt 63.5 kg
--- NOTE | 2020-04-10 16:54 | ED Chest Pain ---
General Stated Complaint: CHEST PAIN History of Present Illness Date Seen by Provider: Apr 10, 2020 Time Seen by Provider: 16:46 Initial Comments 40-year-old female presents with chest pain, body aches, shortness of breath, chills. She reports that started this morning she had a shower. Patient caused the chest pain is basically related to her overall generalized body aches and with deep breath. She feels short of breath. She has no known sick contacts. Allergies and Home Medications Allergies Coded Allergies: ibuprofen (Unverified Allergy, Mild, 02/19/09) Home Medications Azithromycin 250 Mg Tablet, 250 MG PO UD TAKE 2 TABLETS ON DAY ONE THEN TAKE 1 TABLET DAILY FOR FOUR MORE DAYS Prescribed by: LUIS EDUARDO GREY on 04/10/20 1818 Docusate Sodium 100 Mg Capsule, 100 MG PO BID Prescribed by: MELINDA BEY on 09/01/18 0858 Ferrous Sulfate 325 Mg Tablet, 325 MG PO TIDWM Prescribed by: SARAH WADE on 11/17/15 1525 Ketorolac Tromethamine 10 Mg Tablet, 10 MG PO Q6H PRN for PAIN-MODERATE (5-7) Prescribed by: ARIANNE HANSEN on 07/15/19 205 Oxycodone HCl/Acetaminophen 1 Each Tablet, 1 TAB PO Q4H Prescribed by: MELINDA BEY on 08/02/19 1529 [id number]/Iron Fumarate/FA/Dss 1 Each Tablet, 1 EACH PO DAILY, (Reported) Patient Home Medication List Home Medication List Reviewed: Yes Review of Systems Review of Systems Constitutional: chills; No fever; malaise Respiratory: Cough, Shortness of Air Cardiovascular: Chest Pain; Denies Irregular Heart Rate Gastrointestinal: Denies Abdominal Pain, Denies Diarrhea, Denies Nausea, Denies Vomiting Musculoskeletal: no symptoms reported Skin: no symptoms reported Psychiatric/Neurological: No Symptoms Reported Past Sfhukqw-Uaimrx-Soqsyb Hx Past Med/Social Hx: Reviewed Nursing Past Med/Soc Hx Patient Social History Type Used: Cigarettes 2nd Hand Smoke Exposure: Yes Recent Foreign Travel: No Contact w/Someone Who Travel: No Recent Hopitalizations: No Immunizations Up To Date Tetanus Booster (TDap): Unknown Date of Influenza Vaccine: Apr 05, 2018 Seasonal Allergies Seasonal Allergies: No Past Medical History Surgeries: Yes ( X 4) Section, Gallbladder Respiratory: No Cardiac: Yes (with last ) Hypertension Neurological: No Sexually Transmitted Disease: Yes (Chlamydia) HIV/AIDS: No Genitourinary: No Gastrointestinal: No Musculoskeletal: Yes Chronic Back Pain Endocrine: Yes (GDM with last ) HEENT: No Cancer: No Psychosocial: No Integumentary: No Blood Disorders: No Family Medical History Diabetes mellitus 19 MOTHER G8 SISTER Hypertension (mother) Paraplegia 19 FATHER No Pertinent Family Hx Physical Exam Vital Signs Vital Signs - First Documented 04/10/20 16:40 Temp 36.8 Pulse 87 Resp 15 B/P (MAP) 98/61 (73) Pulse Ox 100 O2 Delivery Room Air Capillary Refill : Height, Weight, BMI Height: 4'11.00" Weight: 176lbs. 0.8oz. 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 Norm as Tested Skin: Normal Color, Warm/Dry Focused Exam Lactate Level 04/10/20 17:22: Lactic Acid Level 1.44 Lactic Acid Level Laboratory Tests Test 04/10/20 17:22 Lactic Acid Level 1.44 MMOL/L (0.50-2.00) Progress/Results/Core Measures Results/Orders Lab Results Laboratory Tests Test 04/10/20 17:10 04/10/20 17:22 Range/Units White Blood Count 12.3 H 4.3-11.0 10^3/uL Red Blood Count 3.98 3.80-5.11 10^6/uL Hemoglobin 12.1 11.5-16.0 g/dL Hematocrit 36 35-52 % Mean Corpuscular Volume 90 80-99 fL Mean Corpuscular Hemoglobin 30 25-34 pg Mean Corpuscular Hemoglobin Concent 34 32-36 g/dL Red Cell Distribution Width 13.6 10.0-14.5 % Platelet Count 323 130-400 10^3/uL Mean Platelet Volume 7.8 L 9.0-12.2 fL Immature Granulocyte % (Auto) 1 % Neutrophils (%) (Auto) 93 H 42-75 % Lymphocytes (%) (Auto) 5 L 12-44 % Monocytes (%) (Auto) 2 0-12 % Eosinophils (%) (Auto) 0 0-10 % Basophils (%) (Auto) 0 0-10 % Neutrophils # (Auto) 11.5 H 1.8-7.8 10^3/uL Lymphocytes # (Auto) 0.6 L 1.0-4.0 10^3/uL Monocytes # (Auto) 0.2 0.0-1.0 10^3/uL Eosinophils # (Auto) 0.0 0.0-0.3 10^3/uL Basophils # (Auto) 0.0 0.0-0.1 10^3/uL Immature Granulocyte # (Auto) 0.1 0.0-0.1 10^3/uL Neutrophils % (Manual) 87 % Lymphocytes % (Manual) 6 % Monocytes % (Manual) 1 % Eosinophils % (Manual) 0 % Basophils % (Manual) 1 % Band Neutrophils 5 % Blood Morphology Comment NORMAL Prothrombin Time 13.4 12.2-14.7 SEC INR Comment 1.0 0.8-1.4 Activated Partial Thromboplast Time 31 24-35 SEC Fibrinogen 396 221-496 MG/DL Sodium Level 137 135-145 MMOL/L Potassium Level 3.8 3.6-5.0 MMOL/L Chloride Level 103 98-107 MMOL/L Carbon Dioxide Level 25 21-32 MMOL/L Anion Gap 9 5-14 MMOL/L Blood Urea Nitrogen 10 7-18 MG/DL Creatinine 0.82 0.60-1.30 MG/DL Estimat Glomerular Filtration Rate > 60 BUN/Creatinine Ratio 12 Glucose Level 94 70-105 MG/DL Lactic Acid Level 1.44 0.50-2.00 MMOL/L Calcium Level 9.6 8.5-10.1 MG/DL Corrected Calcium 9.4 8.5-10.1 MG/DL Total Bilirubin 0.5 0.1-1.0 MG/DL Aspartate Amino Transf (AST/SGOT) 35 H 5-34 U/L Alanine Aminotransferase (ALT/SGPT) 37 0-55 U/L Alkaline Phosphatase 54 40-136 U/L Lactate Dehydrogenase 156 125-220 U/L Troponin I < 0.028 <0.028 NG/ML C-Reactive Protein High Sensitivity 0.11 0.00-0.50 MG/DL Total Protein 7.5 6.4-8.2 GM/DL Albumin 4.2 3.2-4.5 GM/DL Micro Results Microbiology 04/10/20 Influenza Types A,B Antigen (DAMIEN) - Final, Complete My Orders Orders - LUIS EDUARDO GREY DO Vital Signs: Every 4 Hours (Or (04/10/20 16:55) Monitor-Rhythm Ecg Trace Only (04/10/20 16:55) Urine Bedside (04/10/20 16:55) Cbc With Automated Diff (04/10/20 16:55) Comprehensive Metabolic Panel (04/10/20 16:55) Ferritin (04/10/20 16:55) LDH (04/10/20 16:55) Hs C Reactive Protein (04/10/20 16:55) Troponin I (04/10/20 16:55) Lactic Acid Analyzer (04/10/20 16:55) Protime With Inr (04/10/20 16:55) Partial Thromboplastin Time (04/10/20 16:55) Fibrinogen (04/10/20 16:55) Ekg Tracing (04/10/20 16:55) Chest 1 View, Ap/Pa Only (04/10/20 16:55) Acetaminophen Tablet/Caplet (Tylenol T (04/10/20 17:00) Influenza A And B Antigens (04/10/20 16:55) Coronavirus Sars-Cov-2 So 2018 (04/10/20 16:55) Manual Differential (04/10/20 17:22) Medications Given in ED Vital Signs/I&O 04/10/20 04/10/20 16:40 18:22 Temp 36.8 36.8 Pulse 87 89 Resp 15 18 B/P (MAP) 98/61 (73) 99/63 (73) Pulse Ox 100 100 O2 Delivery Room Air Room Air Progress Progress Note : Progress Note Patient with incidental positive urine test. Patient was found have a questionable pneumonia. She denies any cough or shortness of breath but does have some generalized body aches and chills. Patient also had elevated white count. Based on her possibility of being along with elevated white count I will treat her with azithromycin. I recommend she start vitamins. She will need to follow-up with her primary care provider for recheck of her symptoms and further care. Patient stable and will be discharged Diagnostic Imaging Diagonstic Imaging: Xray Plain Films/CT/US/NM/MRI: chest Comments [facility] [place], [place] NAME: VISHNU LEBRON [facility] REC#: [id number] PT STATUS: REG ER : 1980 PHYSICIAN: LUIS EDUARDO GREY DO ADMIT DATE: 04/10/20/ER Draft Date of Exam:04/10/20 CHEST 1 VIEW, AP/PA ONLY Clinical indication: Patient with chest pain. Exam: Portable chest x-ray upright view. Comparisons: Chest x-ray dated 03/29/2013. Findings: Lungs/pleura: There is development of mild right basilar atelectasis versus infiltrate. Left lung is clear. There is no pneumothorax. There is no pleural effusion. Mediastinum: Unremarkable. Pulmonary vasculature: Unremarkable. Heart: Unremarkable. Bones/extrathoracic soft tissue: Unremarkable. Impression: There is interval development of mild right lung base atelectasis versus infiltrate. Reviewed: Reviewed by Me, Reviewed/Discussed Departure Impression Primary Impression: Right lower lobe pneumonia Qualified Codes: J18.9 - Pneumonia, unspecified organism Additional Impression: , incidental Disposition: 01 HOME, SELF-CARE Condition: Stable Departure-Patient Inst. Referrals: [facility] (PCP/Family) Primary Care Physician Patient Instructions: COVID19, Pneumonia in Adults, Care Add. Discharge Instructions: Please start a vitamin Scripts Azithromycin (Azithromycin) 250 Mg Tablet 250 MG PO UD, #6 TAB TAKE 2 TABLETS ON DAY ONE THEN TAKE 1 TABLET DAILY FOR FOUR MORE DAYS Prov: LUIS EDUARDO GREY DO 04/10/20 LUIS EDUARDO GREY DO Apr 10, 2020 16:54
[2020-04-10] MEDS ORDERED: ACETAMINOPHEN 325 MG TABLET PO ONE (17:00)
--- NOTE | 2020-04-10 17:11 | NUR ---
Pt uncooperative with flu and COVID swab. Probable ineffective sample.
--- NOTE | 2020-04-10 17:23 | Diagnostic Imaging Report ---
Clinical indication: Patient with chest pain. Exam: Portable chest x-ray upright view. Comparisons: Chest x-ray dated 03/29/2013. Findings: Lungs/pleura: There is development of mild right basilar atelectasis versus infiltrate. Left lung is clear. There is no pneumothorax. There is no pleural effusion. Mediastinum: Unremarkable. Pulmonary vasculature: Unremarkable. Heart: Unremarkable. Bones/extrathoracic soft tissue: Unremarkable. Impression: There is interval development of mild right lung base atelectasis versus infiltrate. Dictated by: Dictated on workstation # [id number]
[2020-04-10 17:33] LABS: BASOPHILS % (AUTO) 0 % (0-10); EOSINOPHILS % (AUTO) 0 % (0-10); HEMATOCRIT 36 % (35-52); HEMOGLOBIN 12.1 g/dL (11.5-16.0); LYMPHOCYTES # (AUTO) 0.6 10^3/uL (1.0-4.0); LYMPHOCYTES % (AUTO) 5 % (12-44); MEAN CORPUSCULAR HEMOGLOBIN 30 pg (25-34); MEAN CORPUSCULAR HGB CONC 34 g/dL (32-36); MEAN CORPUSCULAR VOLUME 90 fL (80-99); MEAN PLATELET VOLUME 7.8 fL (9.0-12.2); MONOCYTES # (AUTO) 0.2 10^3/uL (0.0-1.0); MONOCYTES % (AUTO) 2 % (0-12); NEUTROPHILS # (AUTO) 11.5 10^3/uL (1.8-7.8); NEUTROPHILS % (AUTO) 93 % (42-75); PLATELET COUNT 323 10^3/uL (130-400); WHITE BLOOD COUNT 12.3 10^3/uL (4.3-11.0)
[2020-04-10 17:42] LABS: ALBUMIN 4.2 GM/DL (3.2-4.5); CHLORIDE 103 MMOL/L (98-107); POTASSIUM 3.8 MMOL/L (3.6-5.0); SODIUM 137 MMOL/L (135-145)
[2020-04-10 17:43] LABS: CALCIUM 9.6 MG/DL (8.5-10.1)
[2020-04-10 17:44] LABS: GLUCOSE 94 MG/DL (70-105); PROTHROMBIN TIME PATIENT 13.4 SEC (12.2-14.7)
[2020-04-10 17:45] LABS: TOTAL PROTEIN 7.5 GM/DL (6.4-8.2)
[2020-04-10 17:46] LABS: BILIRUBIN,TOTAL 0.5 MG/DL (0.1-1.0); CARBON DIOXIDE 25 MMOL/L (21-32)
[2020-04-10 17:48] LABS: ALKALINE PHOSPHATASE 54 U/L (40-136); CREATININE SERUM 0.82 MG/DL (0.60-1.30); GFR ESTIMATED > 60
[2020-04-10 17:49] LABS: BUN/CREATININE RATIO 12
[2020-04-10 17:51] LABS: ALANINE AMINOTRANSFERASE 37 U/L (0-55)
[2020-04-10 18:02] LABS: BAND NEUTROPHILS 5 %; BASOPHILS % (MANUAL) 1 %; EOSINOPHILS % (MANUAL) 0 %; LYMPHOCYTES % (MANUAL) 6 %; MONOCYTES % (MANUAL) 1 %; NEUTROPHILS % (MANUAL) 87 %; RBC MORPH NORMAL
[2020-04-10] MEDS ORDERED: AZIT250T12 PO (18:18)
[2020-04-10 18:22] VITALS: BP 99/63
== END 2020-04-10 18:22 | disposition home or self-care (01) ==
LOC: EDUNIT# 16:32 → ER 16:34
DX: J18.9 Pneumonia, unspecified organism (principal); I10 Essential (primary) hypertension; G89.29 Other chronic pain; M54.9 Dorsalgia, unspecified; Z33.1 Pregnant state, incidental; Z88.6 Allergy status to analgesic agent; Z77.22 Contact with and (suspected) exposure to environmental tobacco smoke (acute) (chronic); Z79.891 Long term (current) use of opiate analgesic; Z20.828 Contact with and (suspected) exposure to other viral communicable diseases
CPT/HCPCS: 71045; 80053; 82728; 83605; 83615; 84484; 84703; 85007; 85027; 85384; 85610; 85730; 86141; 87804; 93041; 99284; U0002; 36415; 87635

== ENCOUNTER 2020-04-16 20:06 | Emergency (ER) | payer MEDICAID ==
[~2020-04-16 20:06] MED LIST changes: +AZIT250T12 PO
--- NOTE | 2020-04-16 20:15 | NUR ---
pt not in waiting room.
== END 2020-04-16 20:29 | disposition left against medical advice (07) ==
LOC: EDUNIT# 20:06 → ER 20:08
DX: S49.91XA Unspecified injury of right shoulder and upper arm, initial encounter (principal); Z20.828 Contact with and (suspected) exposure to other viral communicable diseases; X58.XXXA Exposure to other specified factors, initial encounter

== ENCOUNTER 2020-04-16 23:34 | Emergency (ER) | payer MEDICAID ==
[~2020-04-16] VITALS: Ht 149.8 cm; Wt 63.5 kg
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
[2020-04-17 00:11] LABS: AMPHETAMINE SCREEN, URINE POSITIVE (NEGATIVE); BARBITURATE SCREEN URINE NEGATIVE (NEGATIVE); BENZODIAZEPINES SCREEN URINE NEGATIVE (NEGATIVE); CANNABINOID SCREEN, URINE POSITIVE (NEGATIVE); COCAINE SCREEN URINE NEGATIVE (NEGATIVE); METHADONE STAT NEGATIVE (NEGATIVE); METHAMPHETAMINE SCREEN URINE S POSITIVE (NEGATIVE); OPIATE SCREEN URINE NEGATIVE (NEGATIVE); OXYCODONE STAT NEGATIVE (NEGATIVE); PROPOXYPHENE STAT NEGATIVE (NEGATIVE); TRICYCLIC ANTIDEPRESSANTS SCRE NEGATIVE (NEGATIVE)
[2020-04-17 00:35] VITALS: BP 117/81
--- NOTE | 2020-04-17 06:57 | Diagnostic Imaging Report ---
EXAM: SHOULDER, RIGHT, 3 VIEWS INDICATION: Right shoulder pain. COMPARISON: None. FINDINGS: No fracture or malalignment. No suspicious osteoblastic or lytic lesions. Right lung field is clear. IMPRESSION: Negative right shoulder radiographs. Dictated by: Dictated on workstation # [id number]
== END 2020-04-17 00:38 | disposition home or self-care (01) ==
LOC: EDUNIT# 23:34 → ER 23:36
DX: S40.011A Contusion of right shoulder, initial encounter (principal); F15.90 Other stimulant use, unspecified, uncomplicated; F41.9 Anxiety disorder, unspecified; G89.29 Other chronic pain; M54.9 Dorsalgia, unspecified; F17.210 Nicotine dependence, cigarettes, uncomplicated; Z82.49 Family history of ischemic heart disease and other diseases of the circulatory system; Z83.3 Family history of diabetes mellitus; Z32.01 Encounter for pregnancy test, result positive; Z79.891 Long term (current) use of opiate analgesic; Z88.6 Allergy status to analgesic agent; W10.9XXA Fall (on) (from) unspecified stairs and steps, initial encounter
CPT/HCPCS: 73030; 80306; 84703

== ENCOUNTER 2021-01-08 14:50 | Emergency (ER) | payer MEDICAID ==
[~2021-01-08] VITALS: Ht 149 cm; Wt 61.0 kg
[~2021-01-08 14:50] MED LIST changes: +NAPR-1088 PO; -NAPR250T6 PO
[2021-01-08] MEDS ORDERED: NAPR-1071 PO (15:00)
[2021-01-08] MEDS ORDERED: METH-732 PO (15:00)
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
--- NOTE | 2021-01-08 16:02 | Diagnostic Imaging Report ---
INDICATION: Right leg injury, trauma. COMPARISON: None. EXAMINATION: Four views of the right femur. FINDINGS: No fracture or dislocation. Articular surfaces are normal. No osseous lesion is seen. No foreign body. IMPRESSION: Negative right femur. Dictated by: Dictated on workstation # [id number]
[2021-01-08 16:46] VITALS: BP 115/82
== END 2021-01-08 16:47 | disposition home or self-care (01) ==
LOC: EDUNIT# 14:50 → ER 14:52
DX: S40.021A Contusion of right upper arm, initial encounter (principal); M25.562 Pain in left knee; M25.551 Pain in right hip; M25.511 Pain in right shoulder; M25.531 Pain in right wrist; G89.29 Other chronic pain; M54.9 Dorsalgia, unspecified; Z79.891 Long term (current) use of opiate analgesic; Z88.6 Allergy status to analgesic agent; V13.4XXA Pedal cycle driver injured in collision with car, pick-up truck or van in traffic accident, initial encounter; Y92.410 Unspecified street and highway as the place of occurrence of the external cause
CPT/HCPCS: 71045; 72100; 73030; 73552; 73562

== ENCOUNTER 2021-01-27 07:59 | Emergency (ER) | payer MEDICAID ==
[~2021-01-27] VITALS: Ht 149.9 cm; Wt 60.3 kg
[~2021-01-27 07:59] MED LIST changes: +METH-732 PO; +NAPR-1071 PO
[2021-01-27 08:07] VITALS: BP 124/84
--- NOTE | 2021-01-27 08:20 | ED Fall/Injury ---
General Chief Complaint: Trauma-Non Activation Stated Complaint: FALL;ANKLE INJ Nursing Triage Note: PT STATES SHE FELL OFF HER PORCH AND INJURED RIGHT ANKLE AND RIGHT ARM. Source: patient Exam Limitations: no limitations History of Present Illness Date Seen by Provider: Jan 27, 2021 Time Seen by Provider: 08:18 Initial Comments This 40-year-old woman presents to the emergency room with complaints of injury to the right hand, wrist, foot, and ankle after tripping on stairs about 45 minutes prior to arrival. She reports this was purely mechanical without any prodrome such as dizziness or shortness of breath. She was quick to ask for a note excusing her from court at 0900. Allergies and Home Medications Allergies Coded Allergies: ibuprofen (Unverified Allergy, Mild, 02/19/09) Home Medications Azithromycin 250 Mg Tablet, 250 MG PO UD TAKE 2 TABLETS ON DAY ONE THEN TAKE 1 TABLET DAILY FOR FOUR MORE DAYS Prescribed by: LUIS EDUARDO GREY on 04/10/20 1818 Docusate Sodium 100 Mg Capsule, 100 MG PO BID Prescribed by: MELINDA BEY on 09/01/18 0858 Ferrous Sulfate 325 Mg Tablet, 325 MG PO TIDWM Prescribed by: SARAH WADE on 11/17/15 1525 Ketorolac Tromethamine 10 Mg Tablet, 10 MG PO Q6H PRN for PAIN-MODERATE (5-7) Prescribed by: ARIANNE HANSEN on 07/15/19 205 Methocarbamol 750 Mg Tablet, 750 MG PO Q6-8HR Prescribed by: HERNANDEZ CARLOS on 01/08/21 1500 Naproxen 500 Mg Tablet, 500 MG PO BID Prescribed by: HERNANDEZ CARLOS on 01/08/21 1500 Oxycodone HCl/Acetaminophen 1 Each Tablet, 1 TAB PO Q4H Prescribed by: MELINDA BEY on 08/02/19 1529 Yex013/Iron Fumarate/FA/Dss 1 Each Tablet, 1 EACH PO DAILY, (Reported) Patient Home Medication List Home Medication List Reviewed: Yes Review of Systems Review of Systems Constitutional: no symptoms reported Respiratory: no symptoms reported Cardiovascular: no symptoms reported Musculoskeletal: see HPI Skin: other (Abrasion over anterior right proximal foot) Psychiatric/Neurological: No Symptoms Reported Past Lderwmo-Kfuner-Pktvmh Hx Patient Social History Tobacco Use?: Yes Tobacco type used: Cigarettes Smoking Status: Current Everyday Smoker Use of E-Cig and/or Vaping dev: No Substance use?: Yes Substance type: Marijuana Substance frequency: Daily Alcohol Use?: Yes Alcohol Frequency: Daily Pt feels they are or have been: No Immunizations Up To Date Tetanus Booster (TDap): Unknown Seasonal Allergies Seasonal Allergies: No Past Medical History Surgeries: Yes ( X 6;D&C FOR MISCARRIAGE 08/02/19) Section, Gallbladder Respiratory: No Cardiac: Yes (with last ) Hypertension Neurological: No Sexually Transmitted Disease: Yes (Chlamydia) HIV/AIDS: No Genitourinary: No Gastrointestinal: No Musculoskeletal: Yes Chronic Back Pain Endocrine: Yes (GDM with last ) HEENT: No Cancer: No Psychosocial: No Integumentary: No Blood Disorders: No Family Medical History Diabetes mellitus 19 MOTHER G8 SISTER Hypertension (mother) Paraplegia 19 FATHER No Pertinent Family Hx Physical Exam Vital Signs Vital Signs - First Documented 01/27/21 08:07 Temp 36.2 Pulse 90 Resp 17 B/P (MAP) 124/84 (97) O2 Delivery Room Air Capillary Refill : Less Than 3 Seconds Height, Weight, BMI Height: 4'11.00" Weight: 176lbs. 0.8oz. 79.541465nw; 26.00 BMI Method:Stated General Appearance: WD/WN, no apparent distress HEENT: normal ENT inspection Respiratory: no respiratory distress Extremities: other (Tenderness to the right lateral malleolus, right lateral foot, and right proximal dorsal foot. Minor abrasions to the right proximal dorsal foot. Patient states tenderness and pain with range of motion throughout the mid right forearm to the mid right hand.) Neurologic/Psychiatric: change advisor II-XII nml as tested, no motor/sensory deficits, alert, normal mood/affect, oriented x 3 Skin: normal color, warm/dry [place] Coma Score Best Eye Response: (4) Open Spontaneously Best Verbal Response: (5) Oriented Best Motor Response: (6) Obeys Commands Denis Total: 15 Progress/Results/Core Measures Results/Orders My Orders Orders - ARIANNE PARKER MD Forearm, Right, 2 Views (01/27/21 08:16) Hand, Right, 3 Views (01/27/21 08:16) Foot, Right, 3 View (01/27/21 08:16) Ankle, Right, 3 Views (01/27/21 08:16) Vital Signs/I&O 01/27/21 08:07 Temp 36.2 Pulse 90 Resp 17 B/P (MAP) 124/84 (97) O2 Delivery Room Air Blood Pressure Mean: 97 Progress Progress Note : Progress Note No acute injuries were identified. Margarito wrap was applied to the right ankle. Patient was discharged promptly in an effort to help her make her court date. Diagnostic Imaging Diagonstic Imaging: Xray Plain Films/CT/US/NM/MRI: ankle (And foot) Comments Ankle and foot x-rays viewed by me and report reviewed. See report below: NAME: VISHNU LEBRON [facility] REC#: [id number] PT STATUS: [facility] ER : 1980 PHYSICIAN: ARIANNE PARKER MD ADMIT DATE: 01/27/21/ER Signed Date of Exam:01/27/21 ANKLE, RIGHT, 3 VIEWS CLINICAL INDICATION: Patient fell on her porch and injured right ankle and right foot. EXAMS: 1: X-ray of the right ankle, 3 views. 2: X-ray of the right foot, 3 views. COMPARISON: None. FINDINGS: X-rays of the right foot and right ankle show no acute fracture or dislocation. There is no significant bone or joint abnormality. The ankle mortise and syndesmotic joints are unremarkable. IMPRESSION: X-ray of the right ankle right foot shows no acute fracture or dislocation. Dictated by: Dictated on workstation # [id number] Dict: 01/27/21 08 Trans: 01/27/21 0908 [id number] Interpreted by: QUINN CUEVAS MD Electronically signed by: QUINN CUEVAS MD 01/27/21 0908 Diagonstic Imaging: Xray Plain Films/CT/US/NM/MRI: forearm, hand Comments X-rays of the right hand and forearm viewed by me and report reviewed. Discussed with Dr. Garnett. The variance appears to be a chronic problem given no acute injury to the elbow. This is not an acute finding that requires treatment or referral from the ER. See report below: NAME: VISHNU LEBRON [facility] REC#: [id number] PT STATUS: [facility] ER : 1980 PHYSICIAN: ARIANNE PARKER MD ADMIT DATE: 01/27/21/ER Signed Date of Exam:01/27/21 FOREARM, RIGHT, 2 VIEWS CLINICAL INDICATION: Patient fell off her porch and injured right arm. EXAMS: 1: X-ray of the right forearm, 2 views. 2: X-ray of the right hand, 3 views. COMPARISON: None. FINDINGS: X-ray of the right hand and right forearm show no acute fracture. There is roughly 3 mm of negative ulnar variance of unknown age. Otherwise, the remainder of the right hand and right forearm show no significant bony abnormality. The scapholunate interval and distal radioulnar joints otherwise unremarkable. There is no elbow effusion. IMPRESSION: 1: There is negative ulnar variance of unknown age. 2: Otherwise, there is no acute fracture or dislocation. Dictated by: Dictated on workstation # [id number] Dict: 01/27/21 0843 Trans: 01/27/21 0908 [facility] [id number] Interpreted by: QUINN CUEVAS MD Electronically signed by: QUINN CUEVAS MD 01/27/21 0908 Departure Impression Primary Impression: Right wrist sprain Qualified Codes: S63.501A - Unspecified sprain of right wrist, initial encounter Additional Impressions: Right ankle sprain Qualified Codes: S93.401A - Sprain of unspecified ligament of right ankle, initial encounter Fall on stairs Qualified Codes: W10.9XXA - Fall (on) (from) unspecified stairs and steps, initial encounter Disposition: 01 HOME, SELF-CARE Condition: Improved Departure-Patient Inst. Referrals: [facility] (PCP/Family) Primary Care Physician Patient Instructions: Ankle Sprain, Wrist Sprain (DC) Add. Discharge Instructions: You may take ibuprofen up to 600 mg every 6 hours and/or Tylenol (acetaminophen) up to 1000 mg every 6 hours as needed for pain. Rest, icing in 20-minute intervals, compressive wrapping, and elevation should help with pain and swelling. If needed, obtain a wrist and/or ankle brace [id number] to help support the sprains. Gradually advance activity as pain allows. All discharge instructions reviewed with patient and/or family. Voiced understanding. Work/School Note: Work Release Form Date Seen in the Emergency Department: Jan 27, 2021 Return to Work: Jan 27, 2021 Other Restrictions Listed Below: Vishnu was released from the ER at 08:50 January 27, 2021. May appear to court ARIANNE PARKER MD Jan 27, 2021 08:20
--- NOTE | 2021-01-27 08:45 | Diagnostic Imaging Report ---
CLINICAL INDICATION: Patient fell on her porch and injured right ankle and right foot. EXAMS: 1: X-ray of the right ankle, 3 views. 2: X-ray of the right foot, 3 views. COMPARISON: None. FINDINGS: X-rays of the right foot and right ankle show no acute fracture or dislocation. There is no significant bone or joint abnormality. The ankle mortise and syndesmotic joints are unremarkable. IMPRESSION: X-ray of the right ankle right foot shows no acute fracture or dislocation. Dictated by: Dictated on workstation # [id number]
--- NOTE | 2021-01-27 08:47 | Diagnostic Imaging Report ---
CLINICAL INDICATION: Patient fell off her porch and injured right arm. EXAMS: 1: X-ray of the right forearm, 2 views. 2: X-ray of the right hand, 3 views. COMPARISON: None. FINDINGS: X-ray of the right hand and right forearm show no acute fracture. There is roughly 3 mm of negative ulnar variance of unknown age. Otherwise, the remainder of the right hand and right forearm show no significant bony abnormality. The scapholunate interval and distal radioulnar joints otherwise unremarkable. There is no elbow effusion. IMPRESSION: 1: There is negative ulnar variance of unknown age. 2: Otherwise, there is no acute fracture or dislocation. Dictated by: Dictated on workstation # [id number]
== END 2021-01-27 08:47 | disposition home or self-care (01) ==
LOC: EDUNIT# 07:59 → ER 08:01
DX: S93.401A Sprain of unspecified ligament of right ankle, initial encounter (principal); S63.501A Unspecified sprain of right wrist, initial encounter; S90.811A Abrasion, right foot, initial encounter; I10 Essential (primary) hypertension; F17.210 Nicotine dependence, cigarettes, uncomplicated; W10.9XXA Fall (on) (from) unspecified stairs and steps, initial encounter
CPT/HCPCS: 73090; 73130; 73610; 73630

== ENCOUNTER 2021-06-23 17:16 | Emergency (ER) | payer SELFPAY ==
[~2021-06-23] VITALS: Ht 149.8 cm; Wt 58.9 kg
[2021-06-23] MEDS ORDERED: ONDA4TAB11 PO (18:15)
[2021-06-23] MEDS ORDERED: KETOROLAC 60 MG/2 ML VIAL IM ONE (18:15)
--- NOTE | 2021-06-23 18:16 | ED Cough/URI ---
General Chief Complaint: Cough/Cold/Flu Symptoms Stated Complaint: FEVER/SORE THROAT Nursing Triage Note: PT AMB TO [facility] 10 WITH COMPLAINT OF SORE THROAT FOR 2 DAYS. Source: patient Exam Limitations: no limitations History of Present Illness Date Seen by Provider: Jun 23, 2021 Time Seen by Provider: 18:00 Initial Comments Patient to the ER by private conveyance with chief complaint of body aches malaise chills but no fever and occasional dry nonproductive cough for the past 3 days. She has not seen anybody about this yet. Has not been using anything for her sore throat or her symptoms. No nausea vomiting diarrhea. She is on her menses right now. She does not take any medicines routinely nor does she have any significant medical history. She smokes about a pack of cigarettes every 3 days Allergies and Home Medications Allergies Coded Allergies: ibuprofen (Unverified Allergy, Mild, 02/19/09) Patient Home Medication List Home Medication List Reviewed: Yes Azithromycin (Azithromycin) 250 Mg Tablet, 250 MG PO UD Prescribed by: LUIS EDUARDO GREY on 04/10/201817 Docusate Sodium (Docusate Sodium) 100 Mg Capsule, 100 MG PO BID Prescribed by: MELINDA BEY on 09/01/18 0858 Ferrous Sulfate (Ferrous Sulfate) 325 Mg Tablet, 325 MG PO TIDWM Prescribed by: SARAH WADE on 11/17/15 152 Ketorolac Tromethamine (Ketorolac Tromethamine) 10 Mg Tablet, 10 MG PO Q6H PRN for PAIN-MODERATE (5-7) Prescribed by: ARIANNE HANSEN on 07/15/192051 Methocarbamol (Methocarbamol) 750 Mg Tablet, 750 MG PO Q6-8HR Prescribed by: HERNANDEZ CARLOS on 01/08/21 1500 Naproxen (Naprosyn) 500 Mg Tablet, 500 MG PO BID Prescribed by: HERNANDEZ CARLOS on 01/08/21 1500 Ondansetron (Ondansetron Odt) 4 Mg Tab.rapdis, 4 MG PO Q6H PRN for NAUSEA/VOMITING Prescribed by: SHAINA VALENTINE on 06/23/21 181 Oxycodone HCl/Acetaminophen (Percocet 5-325 mg Tablet) 1 Each Tablet, 1 TAB PO Q4H Prescribed by: MELINDA BEY on 08/02/19 1529 [id number]/Iron Fumarate/FA/Dss ( 19 Tablet) 1 Each Tablet, 1 EACH PO DAILY, (Reported) Entered as Reported by: GOSIA MALDONADO on 07/05/184 Review of Systems Review of Systems Constitutional: chills; No diaphoresis, No fever; malaise EENTM: No ear discharge, No ear pain, No blurred vision Respiratory: No cough, No phlegm, No short of breath Cardiovascular: No chest pain, No palpitations Gastrointestinal: No abdominal pain, No constipation, No diarrhea, No nausea, No vomiting Genitourinary: see HPI; No decreased output Musculoskeletal: No back pain, No joint pain Skin: no symptoms reported All Other Systems Reviewed Negative Unless Noted: Yes Past Xbshryy-Ugpfrq-Mwaxqg Hx Patient Social History Tobacco Use?: Yes Tobacco type used: Cigarettes Smoking Status: Current Everyday Smoker Use of E-Cig and/or Vaping dev: No Substance use?: No Alcohol Use?: No Pt feels they are or have been: No Immunizations Up To Date Tetanus Booster (TDap): Unknown Influenza Vaccine Up-to-Date: No; Not Current First/Initial COVID19 Vaccinat: August COVID19 Vaccination Heriberto: October COVID19 Vaccination Date: AUGUST Seasonal Allergies Seasonal Allergies: No Past Medical History Surgeries: Yes ( X 6;D&C FOR MISCARRIAGE 08/02/19) Section, Gallbladder Respiratory: No Cardiac: Yes (with last ) Hypertension Neurological: No Sexually Transmitted Disease: Yes (Chlamydia) HIV/AIDS: No Genitourinary: No Gastrointestinal: No Musculoskeletal: Yes Chronic Back Pain Endocrine: Yes (GDM with last ) HEENT: No Cancer: No Psychosocial: No Integumentary: No Blood Disorders: No Family Medical History Diabetes mellitus 19 MOTHER G8 SISTER Hypertension (mother) Paraplegia 19 FATHER No Pertinent Family Hx Physical Exam Vital Signs - First Documented 06/23/21 17:41 Temp 37.6 Pulse 105 Resp 20 B/P (MAP) 115/73 (87) Pulse Ox 100 O2 Delivery Room Air Capillary Refill : Less Than 3 Seconds Height: 4'11.00" Weight: 176lbs. 0.8oz. [id number]; 26.00 BMI Method:Stated General Appearance: WD/WN, mild distress Eyes: Bilateral Eye Normal Inspection, Bilateral Eye PERRL, Bilateral Eye EOMI HEENT: PERRL/EOMI, normal ENT inspection, pharynx normal Neck: full range of motion, supple, normal inspection, tender lateral (Shotty bilateral anterior cervical lymphadenopathy mildly tender to palpation.) Respiratory: lungs clear, normal breath sounds, no respiratory distress, no accessory muscle use Cardiovascular: normal peripheral pulses, regular rate, rhythm, no edema Gastrointestinal: normal bowel sounds, non tender, soft Neurologic/Psychiatric: alert, normal mood/affect, oriented x 3 Progress/Results/Core Measures Suspected Sepsis SIRS Temperature: Pulse: 105 Respiratory Rate: 20 Blood Pressure 115 /73 Mean: 87 Results/Orders Lab Results Laboratory Tests Test 06/23/21 17:44 Range/Units Influenza Type A (RT-PCR) Not Detected Not Detecte Influenza Type B (RT-PCR) Not Detected Not Detecte SARS-CoV-2 RNA (RT-PCR) Not Detected Not Detecte Group A Streptococcus Screen NEGATIVE NEGATIVE My Orders Orders - SHAINA VALENTINE Ketorolac Injection (Toradol Injection) (06/23/21 18:15) Vital Signs/I&O 06/23/21 17:41 Temp 37.6 Pulse 105 Resp 20 B/P (MAP) 115/73 (87) Pulse Ox 100 O2 Delivery Room Air Capillary Refill : Less Than 3 Seconds Blood Pressure Mean: 87 Progress Note : Time: 18:13 Progress Note Toradol IM for her body aches. Recommended conservative management of sore throat. Influenza, Covid and rapid strep swabs. Departure Impression Primary Impression: Upper respiratory tract infection Qualified Codes: J06.9 - Acute upper respiratory infection, unspecified Additional Impression: Pharyngitis Qualified Codes: J02.9 - Acute pharyngitis, unspecified Disposition: HOME, SELF-CARE Condition: Stable Departure-Patient Inst. Decision time for Depature: 18:30 Referrals: [facility] (PCP/Family) Primary Care Physician Patient Instructions: Viral Pharyngitis (DC) Add. Discharge Instructions: Drink lots of fluids especially sports drinks and water. Salty comfort foods such as broth or chicken noodle soup are recommended. Salt water gargles as often as necessary for sore throat. You may also use Chloraseptic spray, throat lozenges etc. for your sore throat. Tylenol 1000 mg every 8 hours as necessary for body aches or fever. Ibuprofen 800 mg every 8 hours as necessary for body aches or fever. Vapor rubs and humidifiers are also helpful for congestion. Ondansetron 1 tablet every 6 hours as necessary for nausea or vomiting. All discharge instructions reviewed with patient and/or family. Voiced understanding. Scripts Ondansetron (Ondansetron Odt) 4 Mg Tab.rapdis 4 MG PO Q6H PRN for NAUSEA/VOMITING, #8 TAB 0 Refills Prov: SHAINA VALENTINE 06/23/21 Work/School Note: Work Release Form Date Seen in the Emergency Department: Jun 23, 2021 Return to Work: Jun 27, 2021 Restrictions: No Restrictions SHAINA VALENTINE Jun 23, 2021 18:16
[2021-06-23 19:02] VITALS: BP 107/78
== END 2021-06-23 19:08 | disposition home or self-care (01) ==
LOC: EDUNIT# 17:16 → ER 17:17
DX: J06.9 Acute upper respiratory infection, unspecified (principal); J02.9 Acute pharyngitis, unspecified; I10 Essential (primary) hypertension; G89.29 Other chronic pain; M54.9 Dorsalgia, unspecified; F17.210 Nicotine dependence, cigarettes, uncomplicated; Z20.822 Contact with and (suspected) exposure to COVID-19; Z79.891 Long term (current) use of opiate analgesic
CPT/HCPCS: 87430; 87636; 99284